=== PATIENT | female | born 1990 | race Caucasian/White ===

== ENCOUNTER 2018-04-24 09:45 | Inpatient (IN) | payer SELFPAY ==
[2018-04-24] MEDS ORDERED: DILAUDID IV ONE ×3 (10:11→17:00)
[2018-04-24] MEDS ORDERED: ZOFRAN IV ONE (10:11)
[2018-04-24] MEDS ORDERED: NACL 0.9% 1000 ML 1,000 ML IV ONE ×2 (10:11→13:07)
--- NOTE | 2018-04-24 10:33 | Emergency Department Report ---
HPI - General Chief Complaint: Nausea/Vomiting/Diarrhea Time Seen by Provider: 04/24/18 10:02 - HPI HPI: 27-year-old after Czech female presents to the emergency department with a 2 day history of upper abdominal pain, nausea and vomiting. Patient says that she has been vomiting blood. She does have a history of a previous gastric ulcer rupture with subsequent surgical repair that occurred in [place] about 1.5 years ago. 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 The patient says that she takes Protonix and Bentyl regularly. She denies any fever, chest pain, armando rtness of breath. ED Past Medical Hx - Past Medical History Previous Medical History?: Yes Additional medical history: ulcers - Social History Smoking Status: Unknown if ever smoked Substance Use Type: None - Medications Home Medications: Home Medications Medication Instructions Recorded Confirmed Last Taken Type ALPRAZolam [Xanax] 1 mg PO DAILY PRN 04/24/18 04/24/18 04/23/18 History Acetaminophen/Codeine [Tylenol 1 tab PO Q6H PRN 04/24/18 04/24/18 04/24/18 History /Codeine # 3 tab] Albuterol Sulfate [Ventolin HFA] 2 puff IH Q4H PRN 04/24/18 04/24/18 04/23/18 History Dicyclomine [Bentyl] 20 mg PO QID 04/24/18 04/24/18 04/23/18 History Pantoprazole [Protonix] 40 mg PO QDAY 04/24/18 04/24/18 04/23/18 History Sucralfate [Carafate] 20 ml PO BIDAC 04/24/18 04/24/18 04/23/18 History ED Review of Systems ROS: Stated complaint: VOMIT/PAIN/ABD PAIN Other details as noted in HPI Comment: All other systems reviewed and negative Constitutional: denies: chills, fever Eyes: denies: eye pain, vision change ENT: denies: ear pain, throat pain Respiratory: denies: cough, shortness of breath Cardiovascular: denies: chest pain, palpitations Gastrointestinal: abdominal pain, nausea, vomiting, hematemesis Genitourinary: denies: urgency, dysuria Musculoskeletal: denies: back pain, arthralgia Skin: denies: rash, lesions Neurological: denies: headache, weakness Physical Exam - Physical Exam Vital Signs: Vital Signs 04/24/18 04/24/18 10:12 10:21 Temperature 99.1 F Pulse Rate 119 H Blood Pressure 119/62 119/62 O2 Sat by Pulse 100 Oximetry Physical Exam: GENERAL: Patient is ill-appearing. HEENT: Normocephalic. Atraumatic. Patient has moist mucous membranes. EYES: Extraocular motions are intact. Pupils are equal and reactive to light bilaterally. NECK: Supple. Trachea is midline. CHEST/LUNGS: Clear to auscultation. There is no respiratory distress noted. HEART/CARDIOVASCULAR: Regular. There is mild to moderate tachycardia. There is no obvious murmur. ABDOMEN: Abdomen is soft. Upper abdominal tenderness to palpation. No guarding. Patient has normal bowel sounds. There is no abdominal distention. SKIN: Skin is warm and dry. NEURO: The patient is awake, alert, and oriented. The patient is cooperative. The patient has no focal neurologic deficits. The patient has normal speech. MUSCULOSKELETAL: There is no tenderness or deformity. There is no limitation range of motion. There is no evidence of acute injury. ED Course Vital Signs 04/24/18 04/24/18 10:12 10:21 Temperature 99.1 F Pulse Rate 119 H Blood Pressure 119/62 119/62 O2 Sat by Pulse 100 Oximetry - Reevaluation(s) Reevaluation #1: After the patient received a dose of Zofran and Dilaudid, the patient started having allergic reaction. She has had the Dilaudid before but says that she has never had Zofran and therefore I believe this to be the allergen. She is complaining of some chest tightness and throat itching. Therefore, patient will be treated with Solu-Medrol, epinephrine and Benadryl to treat and/or avoid roscoe phylaxis. In the meantime, the patient has had some blood work coming back that shows that the patient is with a qualitative serum test. I explained that some of the medication for allergic reaction, such as epinephrine, may not be completely appropriate for but the benefits of using this medication and/or the risk of not using it in an anaphylactic situation definitely outweigh the risks. The patient understands and agrees and receiving these medications. 04/24/18 10:53 - Consultations Consultation #1: Payal, nurse practitioner for the gastroenterology service, came down and saw the patient in the emergency department and they are taking the patient to the endoscopy suite for an upper EGD. 04/24/18 17:55 ED Medical Decision Making - Lab Data Result diagrams: 04/24/18 10:17 04/24/18 10:17 - Radiology Data Radiology results: report reviewed ULTRASOUND ABDOMEN LIMITED: TECHNIQUE: Transabdominal ultrasound with color Doppler interrogation. HISTORY: Upper abdominal pain, hematemesis. COMPARISON: none. FINDINGS: LIVER: Normal. BILIARY SYSTEM: Normal. PANCREAS: Normal. RIGHT KIDNEY: Normal. PROXIMAL AORTA: Normal. ASCITES: None. IMPRESSION: Unremarkable exam. ULTRASOUND OB LESS THAN 14 WEEKS FETUS ULTRASOUND OB TRANSVAGINAL History: Abdominal pain during . Findings: Transabdominal and transvaginal ultrasound imaging was performed. The uterus measures 7 x 5 x 5 cm. No uterine fibroid disease is identified. There appears to be a tiny cystic structure in the endometrial canal near the uterine fundus which probably represents a very early gestational sac. No pole, yolk sac or heart rate could be identified at this time. No subchorionic hemorrhage. Average gestation sac diameter measures 5.2 mm which correlates with a five-week two-day . The right ovary contains a 2.7 cm slightly complex cyst containing debris. The left ovary is unremarkable. No pelvic fluid collection. Impression: Probable very early intrauterine as described above. No pole or heart rate could be demonstrated at this time. Blighted ovum could also be considered. Close interval followup is recommended. 2.7 cm right ovarian cyst, slightly complex. Transcribed By: TTR Dictated By: JAZMIN REYES JR, MD Electronically Authenticated By: JAZMIN REYES JR, MD Signed Date/Time: 04/24/18 1233 - Medical Decision Making Patient presents with upper abdominal pain, nausea and vomiting with hem atemesis. Patient did have multiple episodes of visible hematemesis in the emergency department. As part of her workup, the patient was found to be with a beta hCG of about 2200. Ultrasound showed a very early intrauterine versus blighted ovum versus other. Patient's labs were otherwise unremarkable. Patient did not have any significant hypotension. Hemoglobin was stable. Abdominal ultrasound did not show any acute process. The patient was admitted to the hospitalist service with a gastroenterology consult. - Differential Diagnosis Selina-Treviño tear, gastritis, esophagitis, malignancy, Critical Care Time: No Critical care attestation.: If time is entered above; I have spent that time in minutes in the direct care of this critically ill patient, excluding procedure time. ED Disposition Clinical Impression: Upper GI bleed Qualifiers: Weeks of gestation: less than 8 weeks Qualified Code(s): Z3A.01 - Less than 8 weeks gestation of Hematemesis Qualifiers: Nausea presence: with nausea Qualified Code(s): K92.0 - Hematemesis Disposition: DC-09 OP ADMIT IP TO THIS HOSP Is pt being admited?: Yes Condition: Serious Time of Disposition: 18:04
[2018-04-24 10:38] LABS: Basophils # (Auto) 0.1 K/mm3 (0.0-0.1); Basophils % (Auto) 0.5 % (0.0-1.8); Eosinophils % (Auto) 0.1 % (0.0-4.3); Hematocrit 39.2 % (30.3-42.9); Hemoglobin 12.5 gm/dl (10.1-14.3); Lymphocytes # (Auto) 1.4 K/mm3 (1.2-5.4); Lymphocytes % (Auto) 11.6 % (13.4-35.0); Mean Corpuscular HGB Conc 32 % (30-34); Mean Corpuscular Volume 81 fl (79-97); Monocytes # (Auto) 0.4 K/mm3 (0.0-0.8); Monocytes % (Auto) 3.8 % (0.0-7.3); Platelet Count 349 K/mm3 (140-440); Red Blood Count 4.86 M/mm3 (3.65-5.03); Red Cell Distribution Width 18.3 % (13.2-15.2)
[2018-04-24 10:40] LABS: Bilirubin,Urine NEG (Negative); Blood,Urine NEG (Negative); Color,Urine Yellow (Yellow); Mucus,Urine FEW /HPF; Protein,Urine <15 mg/dL mg/dL (Negative); RBC,Urine < 1.0 /HPF (0.0-6.0); Urobilinogen,Urine < 2.0 mg/dL (<2.0)
[2018-04-24] MEDS ORDERED: BENADRYL IV ONE (10:48)
[2018-04-24] MEDS ORDERED: REGLAN IV ONE (10:48)
[2018-04-24] MEDS ORDERED: BENADRYL ONE (10:52)
[2018-04-24] MEDS ORDERED: ADRENALINE P/F ONE (10:53)
[2018-04-24 10:58] LABS: Alanine Aminotransferase 9 units/L (7-56); Albumin 4.6 g/dL (3.9-5); BUN/Creatinine Ratio 18; Blood Urea Nitrogen 9 mg/dL (7-17); Calcium 9.2 mg/dL (8.4-10.2); Hemolysis Index 4
[2018-04-24 11:00] LABS: Bilirubin,Direct < 0.2 mg/dL (0-0.2)
[2018-04-24] MEDS ORDERED: PEPCID IV ONE (11:14)
--- NOTE | 2018-04-24 12:37 | Ultrasound Report ---
ULTRASOUND OB LESS THAN 14 WEEKS FETUS ULTRASOUND OB TRANSVAGINAL History: Abdominal pain during . Findings: Transabdominal and transvaginal ultrasound imaging was performed. The uterus measures 7 x 5 x 5 cm. No uterine fibroid disease is identified. There appears to be a tiny cystic structure in the endometrial canal near the uterine fundus which probably represents a very early gestational sac. No pole, yolk sac or heart rate could be identified at this time. No subchorionic hemorrhage. Average gestation sac diameter measures 5.2 mm which correlates with a five-week two-day . The right ovary contains a 2.7 cm slightly complex cyst containing debris. The left ovary is unremarkable. No pelvic fluid collection. Impression: Probable very early intrauterine as described above. No pole or heart rate could be demonstrated at this time. Blighted ovum could also be considered. Close interval followup is recommended. 2.7 cm right ovarian cyst, slightly complex.
--- NOTE | 2018-04-24 12:39 | Ultrasound Report ---
ULTRASOUND ABDOMEN LIMITED: TECHNIQUE: Transabdominal ultrasound with color Doppler interrogation. HISTORY: Upper abdominal pain, hematemesis. COMPARISON: none. FINDINGS: LIVER: Normal. BILIARY SYSTEM: Normal. PANCREAS: Normal. RIGHT KIDNEY: Normal. PROXIMAL AORTA: Normal. ASCITES: None. IMPRESSION: Unremarkable exam.
[2018-04-24] MEDS: NACL 0.9% 1000 ML 1,000 ML ONE ×2 (12:45→19:43)
[2018-04-24] MEDS ORDERED: DILAUDID ONE (13:05)
--- NOTE | 2018-04-24 13:44 | Consultation ---
History of Present Illness - Reason for Consult Consult date: 04/24/18 Hematemesis - History of Present Illness Ms. Roger is a 27-year-old woman who was well until 2 days ago when she developed acute onset of epigastric pain with nausea and vomiting with blood in emesis. Due to ongoing symptoms, patient presented to the emergency room where she was noted to have karina bright red blood in emesis, albeit small amounts, but frequently. She was also just diagnosed with in the emergency room. She has a history of perforated peptic ulcer disease in 2017 in [place]. Apparently, the perforation was iatrogenic during endoscopy. She also reports a history of hepatitis C. She denies aspirin and non-steroidal use. She has a remote history of heavy alcohol abuse, but none recently. She reports dark stools, but rectal examination emergency room showed light brown stool. There's been no weight loss. No shortness of breath no weight loss. She has some chest pain with vomiting. Past History Past Medical History: hepatitis (C?), other (PUD - 2017) Past Surgical History: Other (Gastric surgery for PUD) Social history: denies: smoking, alcohol abuse Family history: no significant family history Medications and Allergies Allergies Allergy/AdvReac Type Severity Reaction Status Date / Time ketorolac [From Toradol] Allergy Hives Verified 04/24/18 09:47 ondansetron [From Zofran] Allergy Itching Verified 04/24/18 11:42 piperacillin [From Zosyn] Allergy Hives Verified 04/24/18 09:46 tazobactam [From Zosyn] Allergy Hives Verified 04/24/18 09:46 Home Medications Medication Instructions Recorded Confirmed Last Taken Type ALPRAZolam [Xanax] 1 mg PO DAILY PRN 04/24/18 04/24/18 04/23/18 History Acetaminophen/Codeine [Tylenol 1 tab PO Q6H PRN 04/24/18 04/24/18 04/24/18 History /Codeine # 3 tab] Albuterol Sulfate [Ventolin HFA] 2 puff IH Q4H PRN 04/24/18 04/24/18 04/23/18 History Dicyclomine [Bentyl] 20 mg PO QID 04/24/18 04/24/18 04/23/18 History Pantoprazole [Protonix] 40 mg PO QDAY 04/24/18 04/24/18 04/23/18 History Sucralfate [Carafate] 20 ml PO BIDAC 04/24/18 04/24/18 04/23/18 History Active Meds: Active Medications Sodium Chloride (Nacl 0.9% 1000 Ml) 1,000 mls @ 999 mls/hr IV BOLUS ONE Stop: 04/24/18 14:07 Review of Systems All systems: negative (as per HPI) Exam - Constitutional Vitals: Temp Pulse Resp BP Pulse Ox 99.1 F 105 H 17 119/62 99 04/24/18 10:12 04/24/18 12:18 04/24/18 11:01 04/24/18 12:18 04/24/18 12:18 General appearance: Present: mild distress (vomiting) - EENT Eyes: Present: PERRL, EOM intact ENT: hearing intact - Respiratory Respiratory effort: normal Respiratory: bilateral: CTA - Cardiovascular Rhythm: other (Tachycardia) Heart Sounds: Present: S1 & S2 - Extremities Extremities: No edema - Abdominal General gastrointestinal: Present: soft, tender (mild epigastric), normal bowel sounds - Rectal Rectal Exam: stool brown Results - Labs CBC & Chem 7: 04/24/18 10:17 04/24/18 10:17 Labs: Abnormal lab results 04/24/18 04/24/18 04/24/18 Range/Units 10:17 10:17 10:17 WBC 12.0 H (4.5-11.0) K/mm3 MCH 26 L (28-32) pg RDW 18.3 H (13.2-15.2) % Lymph % (Auto) 11.6 L (13.4-35.0) % Seg Neutrophils % 84.0 H (40.0-70.0) % Seg Neutrophils # 10.1 H (1.8-7.7) K/mm3 Carbon Dioxide 19 L (22-30) mmol/L Creatinine 0.5 L (0.7-1.2) mg/dL Glucose 110 H (65-100) mg/dL HCG, Quant 2272 H (0-4) mIU/mL Assessment and Plan 1. Hematemesis - most consistent with Selina-Treviño tear. Cannot exclude peptic ulcer disease. Patient could well have nausea and vomiting as a result of her though that is less likely given the acute onset of symptoms. She is hemodynamically stable. -We will do urgent upper endoscopy. Risks 2 and to patient explained. -We will give PPI, and may give drip based on findings. - Monitor H&H, and transfuse as needed. -Further recommendations pending outcome of endoscopy.
[2018-04-24] MEDS: NACL 0.9% 1000 ML 1,000 ML IV SCH ×2 (14:32→20:16)
[2018-04-24] MEDS ORDERED: DIPRIVAN 10 MG/ML IV ONE (14:45)
[2018-04-24] MEDS ORDERED: XYLOCAINE 2% INFILTRATI ONE (14:46)
--- NOTE | 2018-04-24 15:13 | Post Operative Note ---
Pre-op diagnosis: Hematemesis Post-op diagnosis: other (Minimal erosion at Z-line) Findings: 1. Normal esophagus 2. Normal Z-line at 40 cm from incisors, with 2-3 mm erosion noted, no stigmata of bleeding. 3. Normal stomach, with no blood, only bile noted in stomach, and no luminal or mucosal abnormality. 4. Normal duodenum and bulb. Procedure: EGD Anesthesia: MAC Surgeon: KAIDEN MANNING Estimated blood loss: none Pathology: none Condition: stable Disposition: floor (Further evaluation of abd pain as per Hospitalist. Consider OB consult to assess for ectopic, etc.)
--- NOTE | 2018-04-24 15:16 | Anesthesia Day of Surgery ---
Anesthesia Day of Surgery - Day of Surgery Patient Examined: Yes Patient H&P Reviewed: Yes Patient is NPO: Yes Beta Blockers: No Cardiac Clearance: No Pulmonary Clearance: No
--- NOTE | 2018-04-24 15:17 | Anesthesia Consultation ---
Anesthesia Consult and Med Hx Date of service: 04/24/18 - Airway Anesthetic Teeth Evaluation: Poor, Partials Mental/Hyoid Distance: Adequate Mallampati Class: Class II Intubation Access Assessment: Probably Good - Pulmonary Exam CTA: Yes - Cardiac Exam Cardiac Exam: No Murmur - Pre-Operative Health Status ASA Pre-Surgery Classification: ASA3 Proposed Anesthetic Plan: MAC - Pulmonary Hx Smoking: Yes Hx Asthma: Yes Hx Respiratory Symptoms: No SOB: No COPD: No Home Oxygen Therapy: No Hx Pneumonia: No Hx Sleep Apnea: No - Cardiovascular System Hx Hypertension: No Hx Coronary Artery Disease: No Hx Heart Attack/AMI: No Hx Angina: No Hx Percutaneous Transluminal Coronary Angioplasty (PTCA): No Hx Cardia Arrhythmia: No Hx Pacemaker: No - Central Nervous System Hx Neuromuscular Disorder: No Hx Seizures: No CVA: No Hx Back Pain: No Hx Psychiatric Problems: No - Gastrointestinal Hx Ulcer: Yes Hx Gastroesophageal Reflux Disease: No - Endocrine Hx Renal Disease: No Hx End Stage Renal Disease: No Hx Cirrhosis: No Hx Liver Disease: No Hx Insulin Dependent Diabetes: No Hx Thyroid Disease: No Hx Hypothyroidism: No Hx Hyperthyroidism: No - Hematic Hx Anemia: No Hx Sickle Cell Disease: No - Other Systems Hx Alcohol Use: No Hx Substance Use: Yes Hx Cancer: No Hx Obesity: No
[2018-04-24] MEDS: DILAUDID IV PRN ×4 (15:30→23:00)
--- NOTE | 2018-04-24 15:31 | Operative Report ---
UPPER ENDOSCOPY REPORT PROCEDURE: Upper endoscopy. PREOPERATIVE DIAGNOSES: Hematemesis and abdominal pain. POSTOPERATIVE DIAGNOSIS: Minimal erosion at EG junction. SEDATION: MAC by Anesthesia. HISTORY: The patient is a 27-year-old woman who comes in with a 1-week history of intermittent epigastric and left upper quadrant abdominal pain and a 2-day history of nausea and vomiting with hematemesis. She has a history of peptic ulcer disease in the past with perforation requiring surgery approximately 2 years ago. She was noted to have karina hematemesis in the ED. Hemoglobin is normal. Procedure, indications, risks, and benefits were explained and consent was obtained. The patient was placed in left lateral decubitus position and sedated. Triage video upper scope was passed through the mouth and oropharynx into the descending duodenum. Scope was then gradually withdrawn with close inspection of mucosa. FINDINGS: 1. Normal appearing esophagus with sharp Z-line located at 40 cm from the incisors. 2. 2-3 mm erosion with no stigmata of bleeding noted at the EG junction that could represent a Selina-Treviño type of an injury. 3. Normal appearing gastric antrum, fundus and body, and cardia. There is no evidence of old or fresh blood and there is bile noted in the stomach. There is no luminal deformity consistent with prior peptic ulcer disease. 4. Normal appearing duodenal bulb and duodenum. The patient tolerated the procedure well without immediate complication. IMPRESSION: 1. Minimal erosion at EG junction consistent with possible trauma from vomiting. 2. Otherwise, normal upper endoscopy with no evidence of bleeding source. [facility]# [id number] HRC/NTS
--- NOTE | 2018-04-24 16:08 | Post Anesthesia Evaluation ---
- Post Anesthesia Evaluation Patient Participated: Yes Airway Patent: Yes Stable Respiratory Function: Yes Temp > 96.8F: Yes Pain Manageable: Yes Adequeate Hydration: Yes Anesthesia Complications: No
--- NOTE | 2018-04-24 17:37 | History and Physical Report ---
History of Present Illness Date of examination: 04/24/18 Date of admission: 04/24/18 13:42 Chief complaint: Persistent vomiting and karina blood in the vomitus 1 History of present illness: 27-year-old -Taiwanese female with history of gastric ulcer comes in for left upper quadrant pain nausea and vomiting x 2 days. Patient apparently threw up bright red blood-a very small amount. Patient had gastric ulcer couple of years ago which was repaired by open laparotomy in [place]. Patient recently moved to [place] from [place]. She takes Bentyl and Protonix regularly .No melanotic stools. No fever or chills. Pain in the epigastric and left upper quadrant is about 10 on a scale of 1-10. No exacerbating or relieving factors. No recent intake of nonsteroidals. Past Medical History Additional medical history: ulcers Social History Smoking Status: Unknown if ever smoked Substance Use Type: None Family history Htn Surgical history Open laparotomy for gastric ulcer surgery Review of systems ROS: Stated complaint: VOMIT/PAIN/ABD PAIN Other details as noted in HPI Comment: All other systems reviewed and negative Constitutional: denies: chills, fever Eyes: denies: eye pain, vision change ENT: denies: ear pain, throat pain Respiratory: denies: cough, shortness of breath Cardiovascular: denies: chest pain, palpitations Gastrointestinal: abdominal pain, nausea, vomiting, hematemesis Genitourinary: denies: urgency, dysuria Musculoskeletal: denies: back pain, arthralgia Skin: denies: rash, lesions Neurological: denies: headache, weakness Past History Past Medical History: hepatitis (C?), other (PUD - 2017) Past Surgical History: Other (Gastric surgery for PUD) Social history: denies: smoking, alcohol abuse Family history: no significant family history Medications and Allergies Allergies Allergy/AdvReac Type Severity Reaction Status Date / Time ketorolac [From Toradol] Allergy Hives Verified 04/24/18 09:47 ondansetron [From Zofran] Allergy Itching Verified 04/24/18 11:42 piperacillin [From Zosyn] Allergy Hives Verified 04/24/18 09:46 tazobactam [From Zosyn] Allergy Hives Verified 04/24/18 09:46 Home Medications Medication Instructions Recorded Confirmed Last Taken Type ALPRAZolam [Xanax] 1 mg PO DAILY PRN 04/24/18 04/24/18 04/23/18 History Acetaminophen/Codeine [Tylenol 1 tab PO Q6H PRN 04/24/18 04/24/18 04/24/18 History /Codeine # 3 tab] Albuterol Sulfate [Ventolin HFA] 2 puff IH Q4H PRN 04/24/18 04/24/18 04/23/18 History Dicyclomine [Bentyl] 20 mg PO QID 04/24/18 04/24/18 04/23/18 History Pantoprazole [Protonix] 40 mg PO QDAY 04/24/18 04/24/18 04/23/18 History Sucralfate [Carafate] 20 ml PO BIDAC 04/24/18 04/24/18 04/23/18 History Active Meds: Active Medications Hydromorphone HCl (Dilaudid) 0.5 mg IV Q3H PRN PRN Reason: Pain , Severe (7-10) Last Admin: 04/24/18 16:00 Dose: 0.5 mg Documented by: Sodium Chloride (Nacl 0.9% 1000 Ml) 1,000 mls @ 50 mls/hr IV DIRECT SHAYE Last Admin: 04/24/18 14:32 Dose: 50 mls/hr Documented by: Pantoprazole Sodium (Protonix) 40 mg IV BID SHAYE Exam - Constitutional Vitals: Temp Pulse Resp BP Pulse Ox 98.3 F 91 H 16 130/44 97 04/24/18 16:33 04/24/18 16:33 04/24/18 16:33 04/24/18 16:33 04/24/18 16:33 General appearance: Present: no acute distress, well-nourished - EENT Eyes: Present: PERRL ENT: hearing intact, clear oral mucosa - Neck Neck: Present: supple, normal ROM - Respiratory Respiratory effort: normal Respiratory: bilateral: CTA - Cardiovascular Heart rate: 78 Rhythm: regular Heart Sounds: Present: S1 & S2. Absent: rub, click - Extremities Extremities: no ischemia, pulses intact, pulses symmetrical, No edema Peripheral Pulses: within normal limits - Abdominal General gastrointestinal: Present: soft, tender (tender in the left upper quadrant region and epigastric region), non-distended, normal bowel sounds Female genitourinary: Present: normal - Integumentary Integumentary: Present: clear, warm, dry - Musculoskeletal Musculoskeletal: gait normal, strength equal bilaterally - Psychiatric Psychiatric: appropriate mood/affect, intact judgment & insight - Neurologic Neurologic: CNII-XII intact, moves all extremities - Allied Health Allied health notes reviewed: nursing, case management Results - Labs CBC & Chem 7: 04/24/18 10:17 04/24/18 10:17 Labs: Laboratory Last Values WBC 12.0 K/mm3 (4.5-11.0) H 04/24/18 10:17 RBC 4.86 M/mm3 (3.65-5.03) 04/24/18 10:17 Hgb 12.5 gm/dl (10.1-14.3) 04/24/18 10:17 Hct 39.2 % (30.3-42.9) 04/24/18 10:17 MCV 81 fl (79-97) 04/24/18 10:17 MCH 26 pg (28-32) L 04/24/18 10:17 MCHC 32 % (30-34) 04/24/18 10:17 RDW 18.3 % (13.2-15.2) H 04/24/18 10:17 Plt Count 349 K/mm3 (140-440) 04/24/18 10:17 Lymph % (Auto) 11.6 % (13.4-35.0) L 04/24/18 10:17 [place] % (Auto) 3.8 % (0.0-7.3) 04/24/18 10:17 Eos % (Auto) 0.1 % (0.0-4.3) 04/24/18 10:17 Baso % (Auto) 0.5 % (0.0-1.8) 04/24/18 10:17 Lymph # 1.4 K/mm3 (1.2-5.4) 04/24/18 10:17 [place] # 0.4 K/mm3 (0.0-0.8) 04/24/18 10:17 Eos # 0.0 K/mm3 (0.0-0.4) 04/24/18 10:17 Baso # 0.1 K/mm3 (0.0-0.1) 04/24/18 10:17 Seg Neutrophils % 84.0 % (40.0-70.0) H 04/24/18 10:17 Seg Neutrophils # 10.1 K/mm3 (1.8-7.7) H 04/24/18 10:17 Sodium 141 mmol/L (137-145) 04/24/18 10:17 Potassium 3.9 mmol/L (3.6-5.0) 04/24/18 10:17 Chloride 106.3 mmol/L (98-107) 04/24/18 10:17 Carbon Dioxide 19 mmol/L (22-30) L 04/24/18 10:17 Anion Gap 20 mmol/L 04/24/18 10:17 BUN 9 mg/dL (7-17) 04/24/18 10:17 Creatinine 0.5 mg/dL (0.7-1.2) L 04/24/18 10:17 Estimated GFR > 60 ml/min 04/24/18 10:17 BUN/Creatinine Ratio 18 % 04/24/18 10:17 Glucose 110 mg/dL (65-100) H 04/24/18 10:17 Calcium 9.2 mg/dL (8.4-10.2) 04/24/18 10:17 Total Bilirubin 0.20 mg/dL (0.1-1.2) 04/24/18 10:17 Direct Bilirubin < 0.2 mg/dL (0-0.2) 04/24/18 10:17 AST 14 units/L (5-40) 04/24/18 10:17 ALT 9 units/L (7-56) 04/24/18 10:17 Alkaline Phosphatase 87 units/L (35-129) 04/24/18 10:17 Total Protein 8.0 g/dL (6.3-8.2) 04/24/18 10:17 Albumin 4.6 g/dL (3.9-5) 04/24/18 10:17 Albumin/Globulin Ratio 1.4 % 04/24/18 10:17 Lipase 28 units/L (13-60) 04/24/18 10:17 HCG, Qual Positive (Negative) 04/24/18 10:17 HCG, Quant 2272 mIU/mL (0-4) H 04/24/18 10:17 Urine Color Yellow (Yellow) 04/24/18 10:16 Urine Turbidity Clear (Clear) 04/24/18 10:16 Urine pH 5.0 (5.0-7.0) 04/24/18 10:16 Ur Specific [place] 1.010 (1.003-1.030) 04/24/18 10:16 Urine Protein <15 mg/dl mg/dL (Negative) 04/24/18 10:16 Urine Glucose (UA) Neg mg/dL (Negative) 04/24/18 10:16 Urine Ketones 20 mg/dL (Negative) 04/24/18 10:16 Urine Blood Neg (Negative) 04/24/18 10:16 Urine Nitrite Neg (Negative) 04/24/18 10:16 Urine Bilirubin Neg (Negative) 04/24/18 10:16 Urine Urobilinogen < 2.0 mg/dL (<2.0) 04/24/18 10:16 Ur Leukocyte Esterase Neg (Negative) 04/24/18 10:16 Urine WBC (Auto) 2.0 /HPF (0.0-6.0) 04/24/18 10:16 Urine RBC (Auto) < 1.0 /HPF (0.0-6.0) 04/24/18 10:16 U Epithel Cells (Auto) 4.0 /HPF (0-13.0) 04/24/18 10:16 Urine Mucus Few /HPF 04/24/18 10:16 Short CBC 04/24/18 Range/Units 10:17 WBC 12.0 H (4.5-11.0) K/mm3 Hgb 12.5 (10.1-14.3) gm/dl Hct 39.2 (30.3-42.9) % Plt Count 349 (140-440) K/mm3 BMP 04/24/18 10:17 Sodium 141 Potassium 3.9 Chloride 106.3 Carbon Dioxide 19 L BUN 9 Creatinine 0.5 L Glucose 110 H Calcium 9.2 Liver Function 04/24/18 Range/Units 10:17 Total Bilirubin 0.20 (0.1-1.2) mg/dL Direct Bilirubin < 0.2 (0-0.2) mg/dL AST 14 (5-40) units/L ALT 9 (7-56) units/L Alkaline Phosphatase 87 (35-129) units/L Albumin 4.6 (3.9-5) g/dL Urine 04/24/18 Range/Units 10:16 Urine Color Yellow (Yellow) Urine pH 5.0 (5.0-7.0) Ur Specific [place] 1.010 (1.003-1.030) Urine Protein <15 mg/dl (Negative) mg/dL Urine Glucose (UA) Neg (Negative) mg/dL - Imaging and Cardiology Imaging and Cardiology: Transvaginal ultrasound Impression: Probable very early intrauterine as described above. No pole or heart rate could be demonstrated at this time. Blighted ovum could also be considered. Close interval followup is recommended. 2.7 cm right ovarian cyst, slightly complex. Abdominal ultrasound IMPRESSION: Unremarkable exam. ultrasound Impression: Probable very early intrauterine as described above. No pole or heart rate could be demonstrated at this time. Blighted ovum could also be considered. Close interval followup is recommended. 2.7 cm right ovarian cyst, slightly complex. Assessment and Plan Advance Directives: Yes (full code) VTE prophylaxis?: Mechanical Plan of care discussed with patient/family: Yes - Patient Problems (1) Upper GI bleed Current Visit: Yes Status: Acute Plan to address problem: Patient being taken for EGD GI consult requested IV Protonix initiated IV Zofran and Reglan IV fluids Check hemoglobin and hematocrit every 8 hours Will admit for 24 hours (2) Early stage of Current Visit: Yes Status: Acute Plan to address problem: Obstetrics consulted (3) Peptic ulcer disease Current Visit: Yes Status: Chronic Plan to address problem: IV Protonix for now (4) DVT prophylaxis Current Visit: Yes Status: Acute Plan to address problem: On SCD's --no Lovenox
[2018-04-24] MEDS ORDERED: SODIUM CHLORIDE FLUSH SYRINGE 10 ML IV PRN (18:05)
[2018-04-24] MEDS ORDERED: TYLENOL PO PRN (18:05)
[2018-04-24] MEDS ORDERED: ZOFRAN IV PRN (18:05)
[2018-04-24] MEDS: REGLAN IV PRN (20:06)
[2018-04-24 20:16] LABS: Hematocrit 35.7 % (30.3-42.9); Hemoglobin 11.5 gm/dl (10.1-14.3)
[2018-04-24] MEDS: PROTONIX IV SCH (22:10)
[2018-04-24] MEDS: SODIUM CHLORIDE FLUSH SYRINGE 10 ML IV SCH (22:11)
[2018-04-25] MEDS: REGLAN IV PRN (01:59)
[2018-04-25] MEDS: DILAUDID IV PRN ×7 (02:00→22:21)
[2018-04-25 03:02] LABS: Basophils % (Auto) 0.3 % (0.0-1.8); Eosinophils # (Auto) 0.1 K/mm3 (0.0-0.4); Eosinophils % (Auto) 0.7 % (0.0-4.3); Hematocrit 33.5 % (30.3-42.9); Hemoglobin 10.6 gm/dl (10.1-14.3); Lymphocytes # (Auto) 2.6 K/mm3 (1.2-5.4); Lymphocytes % (Auto) 30.1 % (13.4-35.0); Mean Corpuscular HGB Conc 32 % (30-34); Mean Corpuscular Volume 82 fl (79-97); Monocytes # (Auto) 0.6 K/mm3 (0.0-0.8); Monocytes % (Auto) 7.3 % (0.0-7.3); Platelet Count 276 K/mm3 (140-440); Red Blood Count 4.09 M/mm3 (3.65-5.03); Red Cell Distribution Width 18.2 % (13.2-15.2)
[2018-04-25 03:27] LABS: Alanine Aminotransferase 8 units/L (7-56); Albumin 3.3 g/dL (3.9-5); BUN/Creatinine Ratio 13; Blood Urea Nitrogen 5 mg/dL (7-17); Calcium 7.9 mg/dL (8.4-10.2); Hemolysis Index 7
[2018-04-25] MEDS: PROTONIX IV SCH ×2 (09:35→22:21)
--- NOTE | 2018-04-25 11:02 | Gastroenterology Progress Note ---
<GINI RAI - Last Filed: 04/25/18 11:05> Assessment and Plan 1.GI bleed/hematemesis 2.H/o PUD (in 2017 in [place] w/ iatrogenic perforation during endoscopy requiring surgical repair) 3.abdominal pain 4.N/V-likely related to early stage of -lipase, LFTs, and WBC WNL -H/H WNL (10.6/33.5) -continue to monitor H/H and transfuse as needed -s/p EGD yesterday that showed minimal erosion at Z-line w/o stigmata of bleeding -clinically, patient reports continued abd pain but vomiting has now improved with no active signs of bleeding overnight. HD stable. -continue PPI -advance diet as tolerated -continue supportive care -further workup of abd pain per OB and primary team (consider imaging) -no further recommendations per GI standpoint at this time -will sign off, please call if needed Subjective Date of service: 04/25/18 Principal diagnosis: GI bleed Interval history: No acute distress. Reports continued abd pain and nausea. No vomiting or active signs of bleeding overnight or this am. Objective - Constitutional Vitals: Temp Pulse Resp BP Pulse Ox 98.8 F 63 18 96/55 100 04/25/18 04:45 04/25/18 04:45 04/25/18 06:43 04/25/18 04:45 04/25/18 04:45 General appearance: no acute distress - EENT Eyes: PERRL, EOM intact ENT: hearing intact - Respiratory Respiratory: bilateral: CTA - Cardiovascular Rhythm: regular Heart Sounds: Present: S1 & S2 - Gastrointestinal General gastrointestinal: Present: soft, tender (mild TTP in LUQ), non- distended, normal bowel sounds, other (+scar from previous surgery) - Neurologic Neurological: alert and oriented x3 - Labs CBC & Chem 7: 04/25/18 02:45 04/25/18 02:45 Labs: Laboratory Results - last 24 hr 04/24/18 04/24/18 04/24/18 10:17 10:17 19:34 WBC RBC Hgb 11.5 Hct 35.7 MCV MCH MCHC RDW Plt Count Lymph % (Auto) [place] % (Auto) Eos % (Auto) Baso % (Auto) Lymph # [place] # Eos # Baso # Seg Neutrophils % Seg Neutrophils # Sodium Potassium Chloride Carbon Dioxide Anion Gap BUN Creatinine Estimated GFR BUN/Creatinine Ratio Glucose Calcium Total Bilirubin Direct Bilirubin < 0.2 AST ALT Alkaline Phosphatase Total Protein Albumin Albumin/Globulin Ratio HCG, Quant 2272 H 04/25/18 04/25/18 02:45 02:45 WBC 8.6 RBC 4.09 Hgb 10.6 Hct 33.5 MCV 82 MCH 26 L MCHC 32 RDW 18.2 H Plt Count 276 Lymph % (Auto) 30.1 [place] % (Auto) 7.3 Eos % (Auto) 0.7 Baso % (Auto) 0.3 Lymph # 2.6 [place] # 0.6 Eos # 0.1 Baso # 0.0 Seg Neutrophils % 61.6 Seg Neutrophils # 5.3 Sodium 138 Potassium 3.3 L Chloride 106.4 Carbon Dioxide 20 L Anion Gap 15 BUN 5 L Creatinine 0.4 L Estimated GFR > 60 BUN/Creatinine Ratio 13 Glucose 75 Calcium 7.9 L Total Bilirubin 0.40 Direct Bilirubin AST 11 ALT 8 Alkaline Phosphatase 64 Total Protein 5.5 L D Albumin 3.3 L Albumin/Globulin Ratio 1.5 HCG, Quant <KAIDEN MANNING R - Last Filed: 04/25/18 16:02> Assessment and Plan Pt having vaginal bleed, and likely having spontaneous /termination of . Having lower abd pain in addition to intermittent LUQ pain. Once OB condition stabilized, if possible, would get CT abdomen for LUQ pain, and then consider surgical evaluation for possible adhesions or internal hernias. Discussed with Dr. Irizarry. Will continue to follow. Objective - Constitutional Vitals: Temp Pulse Resp BP Pulse Ox 98.6 F 85 18 114/61 98 04/25/18 11:36 04/25/18 11:36 04/25/18 11:36 04/25/18 11:36 04/25/18 11:36 - Labs CBC & Chem 7: 04/25/18 12:15 04/25/18 02:45 Labs: Laboratory Results - last 24 hr 04/24/18 04/25/18 04/25/18 19:34 02:45 02:45 WBC 8.6 RBC 4.09 Hgb 11.5 10.6 Hct 35.7 33.5 MCV 82 MCH 26 L MCHC 32 RDW 18.2 H Plt Count 276 Lymph % (Auto) 30.1 [place] % (Auto) 7.3 Eos % (Auto) 0.7 Baso % (Auto) 0.3 Lymph # 2.6 [place] # 0.6 Eos # 0.1 Baso # 0.0 Seg Neutrophils % 61.6 Seg Neutrophils # 5.3 Sodium 138 Potassium 3.3 L Chloride 106.4 Carbon Dioxide 20 L Anion Gap 15 BUN 5 L Creatinine 0.4 L Estimated GFR > 60 BUN/Creatinine Ratio 13 Glucose 75 Calcium 7.9 L Total Bilirubin 0.40 AST 11 ALT 8 Alkaline Phosphatase 64 Total Protein 5.5 L D Albumin 3.3 L Albumin/Globulin Ratio 1.5 04/25/18 12:15 WBC RBC Hgb 11.6 Hct 35.8 MCV MCH MCHC RDW Plt Count Lymph % (Auto) [place] % (Auto) Eos % (Auto) Baso % (Auto) Lymph # [place] # Eos # Baso # Seg Neutrophils % Seg Neutrophils # Sodium Potassium Chloride Carbon Dioxide Anion Gap BUN Creatinine Estimated GFR BUN/Creatinine Ratio Glucose Calcium Total Bilirubin AST ALT Alkaline Phosphatase Total Protein Albumin Albumin/Globulin Ratio
[2018-04-25 12:24] LABS: Hematocrit 35.8 % (30.3-42.9); Hemoglobin 11.6 gm/dl (10.1-14.3)
[2018-04-25] MEDS: SODIUM CHLORIDE FLUSH SYRINGE 10 ML IV SCH ×2 (12:55→22:22)
[2018-04-25] MEDS: NACL 0.9% 1000 ML 1,000 ML IV SCH (16:08)
--- NOTE | 2018-04-25 16:11 | Progress Note ---
Assessment and Plan Assessment and plan: 27-year-old -Malaysian female with history of gastric ulcer comes in for left upper quadrant pain nausea and vomiting x 2 days. Patient apparently threw up bright red blood-a very small amount. Patient had gastric ulcer couple of years ago which was repaired by open laparotomy in [place]. Patient recently moved to [place] from [place]. She takes Bentyl and Protonix regularly .No melanotic stools. No fever or chills. Pain in the epigastric and left upper quadrant is about 10 on a scale of 1-10. No exacerbating or relieving factors. No recent intake of nonsteroidals. GI bleed secondary to Erosive gastritis VAGINAL BLEED ?EARLY SPONTANEOUS IUP PERITONEAL IRRATION ?ADHESION hx of PUD IN 2017 in [place] w/ iatrogenic perforation during endoscopy requiring surgical repair Hypokalemia HX OF PUD Plan Supportive care Discussed with RAILCAR CARPENTER will order repeat transvaginal us Monitor H/H PPI Discussed case with GI, if pain continues patient will need surgical eval for adhesion management Continue zofran PRN Pain control DVT/GI prophy Plan of care discussed with the patient and nursing staff in detail History Interval history: Patient seen and examined this morning, nursing staff reports that she had extensive vaginal bleeding this am, shortly before my exam. Patient still reports abdominal pain, Left upper quadrant and now concerned about possible miss carriage. Hospitalist Physical - Physical exam Narrative exam: VITAL SIGNS: Reviewed. GENERAL: The patient appeared well nourished and normally developed. Vital si gns as documented. HEAD: No signs of head trauma. EYES: Pupils are equal. Extraocular motions intact. EARS: Hearing grossly intact. MOUTH: Oropharynx is normal. NECK: No adenopathy, no JVD. CHEST: Chest with clear breath sounds bilaterally. No wheezes, rales, or rhonchi. CARDIAC: Regular rate and rhythm. S1 and S2, without murmurs, gallops, or rubs. VASCULAR: No Edema. Peripheral pulses normal and equal in all extremities. ABDOMEN: Soft, Tender generalized. No sign of distention. No rebound or guarding, and no masses palpated. Bowel Sounds normal. MUSCULOSKELETAL: Good range of motion of all major joints. Extremities without clubbing, cyanosis or edema. NEUROLOGIC EXAM: Alert and oriented x 3. No focal sensory or strength deficits. Speech normal. Follows commands. PSYCHIATRIC: Mood emotional-teary SKIN: No rash or lesions. - Constitutional Vitals: Temp Pulse Resp BP Pulse Ox 98.6 F 85 18 114/61 98 04/25/18 11:36 04/25/18 11:36 04/25/18 11:36 04/25/18 11:36 04/25/18 11:36 General appearance: Present: no acute distress, well-nourished Results - Labs CBC & Chem 7: 04/25/18 12:15 04/25/18 02:45 Labs: Laboratory Last Values WBC 8.6 K/mm3 (4.5-11.0) 04/25/18 02:45 RBC 4.09 M/mm3 (3.65-5.03) 04/25/18 02:45 Hgb 11.6 gm/dl (10.1-14.3) 04/25/18 12:15 Hct 35.8 % (30.3-42.9) 04/25/18 12:15 MCV 82 fl (79-97) 04/25/18 02:45 MCH 26 pg (28-32) L 04/25/18 02:45 MCHC 32 % (30-34) 04/25/18 02:45 RDW 18.2 % (13.2-15.2) H 04/25/18 02:45 Plt Count 276 K/mm3 (140-440) 04/25/18 02:45 Lymph % (Auto) 30.1 % (13.4-35.0) 04/25/18 02:45 [place] % (Auto) 7.3 % (0.0-7.3) 04/25/18 02:45 Eos % (Auto) 0.7 % (0.0-4.3) 04/25/18 02:45 Baso % (Auto) 0.3 % (0.0-1.8) 04/25/18 02:45 Lymph # 2.6 K/mm3 (1.2-5.4) 04/25/18 02:45 [place] # 0.6 K/mm3 (0.0-0.8) 04/25/18 02:45 Eos # 0.1 K/mm3 (0.0-0.4) 04/25/18 02:45 Baso # 0.0 K/mm3 (0.0-0.1) 04/25/18 02:45 Seg Neutrophils % 61.6 % (40.0-70.0) 04/25/18 02:45 Seg Neutrophils # 5.3 K/mm3 (1.8-7.7) 04/25/18 02:45 Sodium 138 mmol/L (137-145) 04/25/18 02:45 Potassium 3.3 mmol/L (3.6-5.0) L 04/25/18 02:45 Chloride 106.4 mmol/L (98-107) 04/25/18 02:45 Carbon Dioxide 20 mmol/L (22-30) L 04/25/18 02:45 Anion Gap 15 mmol/L 04/25/18 02:45 BUN 5 mg/dL (7-17) L 04/25/18 02:45 Creatinine 0.4 mg/dL (0.7-1.2) L 04/25/18 02:45 Estimated GFR > 60 ml/min 04/25/18 02:45 BUN/Creatinine Ratio 13 % 04/25/18 02:45 Glucose 75 mg/dL (65-100) 04/25/18 02:45 Calcium 7.9 mg/dL (8.4-10.2) L 04/25/18 02:45 Total Bilirubin 0.40 mg/dL (0.1-1.2) 04/25/18 02:45 Direct Bilirubin < 0.2 mg/dL (0-0.2) 04/24/18 10:17 AST 11 units/L (5-40) 04/25/18 02:45 ALT 8 units/L (7-56) 04/25/18 02:45 Alkaline Phosphatase 64 units/L (35-129) 04/25/18 02:45 Total Protein 5.5 g/dL (6.3-8.2) L D 04/25/18 02:45 Albumin 3.3 g/dL (3.9-5) L 04/25/18 02:45 Albumin/Globulin Ratio 1.5 % 04/25/18 02:45 Lipase 28 units/L (13-60) 04/24/18 10:17 HCG, Qual Positive (Negative) 04/24/18 10:17 HCG, Quant 2272 mIU/mL (0-4) H 04/24/18 10:17 Urine Color Yellow (Yellow) 04/24/18 10:16 Urine Turbidity Clear (Clear) 04/24/18 10:16 Urine pH 5.0 (5.0-7.0) 04/24/18 10:16 Ur Specific [place] 1.010 (1.003-1.030) 04/24/18 10:16 Urine Protein <15 mg/dl mg/dL (Negative) 04/24/18 10:16 Urine Glucose (UA) Neg mg/dL (Negative) 04/24/18 10:16 Urine Ketones 20 mg/dL (Negative) 04/24/18 10:16 Urine Blood Neg (Negative) 04/24/18 10:16 Urine Nitrite Neg (Negative) 04/24/18 10:16 Urine Bilirubin Neg (Negative) 04/24/18 10:16 Urine Urobilinogen < 2.0 mg/dL (<2.0) 04/24/18 10:16 Ur Leukocyte Esterase Neg (Negative) 04/24/18 10:16 Urine WBC (Auto) 2.0 /HPF (0.0-6.0) 04/24/18 10:16 Urine RBC (Auto) < 1.0 /HPF (0.0-6.0) 04/24/18 10:16 U Epithel Cells (Auto) 4.0 /HPF (0-13.0) 04/24/18 10:16 Urine Mucus Few /HPF 04/24/18 10:16 Nutrition/Malnutrition Assess - Dietary Evaluation Nutrition/Malnutrition Findings: Nutrition Notes Start: 04/25/18 13:09 Freq: Status: Active Protocol: Document 04/25/18 13:09 DASHA (Rec: 04/25/18 13:41 [email or web address]) Co-Sign 04/25/18 13:09 OL Nutrition Notes 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 Pt stated she has struggled to keep food down for the past month due to suspected ulcer. Pt stated she has had significant weight loss during this time period. The pt has also recently learned she is . Pt. is a potential candidate for TPN. Disscussed potential TPN with GI doctor. GI doctor deferring pt. to hospitalist. Waiting for hospitalist to return call to discuss TPN initiation. Percent of energy/protein needs met: 0%/0% Burn Absent Trauma Absent GI Symptoms Nausea Vomiting Current % PO Poor (25-49%) #1 Nutrition Diagnosis Inadequate oral intake Etiology Altered GI function As Evidenced by Signs and Symptoms Intractible vomitting, siignificant depletion from usual body weight Is patient on ventilator? No Is Patient Ambulatory and/or Out of Bed Yes REE-([facility]-ambulatory/OOB) [ 1524.744 [id number]] Kcal/Kg value to use for calculation 40 Approximate Energy Requirements Using 1708 kcal/Kg Calculation Used for Recommendations Kcal/kg Additional Notes Pro: 51-64g/day (1.2-1.5 g/kg BW) Fluid: 1 ml/kcal Nutrition Intervention Change Diet Order: Advance diet when medically feasible Nutrition Support: TPN if doctor agrees Goal #1 Diet advancement or TPN initiation to best meet nutritonal needs Goal #2 Weight maintenance or gain Anticipated Discharge Needs: Unknown at this time Follow-Up By: 04/28/18 Additional Comments F/u: Diet advacement, need for TPN, wt. status
--- NOTE | 2018-04-25 19:50 | Consultation ---
History of Present Illness Consult date: 04/25/18 Requesting physician: FRANCESCA JOSEPH Reason for consult: other (r/o SAB) History of present illness: Called to see pt due to her having heavy bleeding this am times one episode at about 11am. Pt states just some mild spotting at this time. Pt is a 27-year-old female with history of gastric ulcer comes in for left upper quadrant pain nausea and vomiting x 2 days. Patient apparently threw up bright red blood-a very small amount. Patient had gastric ulcer couple of years ago which was repaired by open laparotomy in [place]. Patient recently moved to [place] from [place]. She takes Bentyl and Protonix regularly .No melanotic stools. No fever or chills. Pt declines any pain at this time but does state she take zanax for anxiety and currently all the event of the last 24hrs have her very anxious. Sonogram was repeated and gestational sac seen yesterday is still present. I have d/w that early still appears in place. No recent intake of nonsteroidals. 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 Family/Genetic History: other (see H&P) Social history: no significant social history, - Obstetrical History : 4 Para: 3 Hx # Term Pregnancies: 1 Number of Pregnancies: 2 Number of Living Children: 3 Medications and Allergies Allergies Allergy/AdvReac Type Severity Reaction Status Date / Time ketorolac [From Toradol] Allergy Hives Verified 04/24/18 09:47 ondansetron [From Zofran] Allergy Itching Verified 04/24/18 11:42 piperacillin [From Zosyn] Allergy Hives Verified 04/24/18 09:46 tazobactam [From Zosyn] Allergy Hives Verified 04/24/18 09:46 Home Medications Medication Instructions Recorded Confirmed Last Taken Type ALPRAZolam [Xanax] 1 mg PO DAILY PRN 04/24/18 04/24/18 04/23/18 History Acetaminophen/Codeine [Tylenol 1 tab PO Q6H PRN 04/24/18 04/24/18 04/24/18 History /Codeine # 3 tab] Albuterol Sulfate [Ventolin HFA] 2 puff IH Q4H PRN 04/24/18 04/24/18 04/23/18 History Dicyclomine [Bentyl] 20 mg PO QID 04/24/18 04/24/18 04/23/18 History Pantoprazole [Protonix] 40 mg PO QDAY 04/24/18 04/24/18 04/23/18 History Sucralfate [Carafate] 20 ml PO BIDAC 04/24/18 04/24/18 04/23/18 History Active Meds: Active Medications Acetaminophen (Tylenol) 650 mg PO Q4H PRN PRN Reason: Pain MILD(1-3)/Fever >100.5/HOFF Hydromorphone HCl (Dilaudid) 1 mg IV Q3H PRN PRN Reason: Pain , Severe (7-10) Last Admin: 04/25/18 19:20 Dose: 1 mg Documented by: Sodium Chloride (Nacl 0.9% 1000 Ml) 1,000 mls @ 50 mls/hr IV DIRECT [facility] Last Admin: 04/25/18 16:08 Dose: 50 mls/hr Documented by: Pantoprazole Sodium (Protonix) 40 mg IV BID [facility] Last Admin: 04/25/18 09:35 Dose: 40 mg Documented by: Sodium Chloride (Sodium Chloride Flush Syringe 10 Ml) 10 ml IV BID [facility] Last Admin: 04/25/18 12:55 Dose: 10 ml Documented by: Sodium Chloride (Sodium Chloride Flush Syringe 10 Ml) 10 ml IV PRN PRN PRN Reason: LINE FLUSH - Vital Signs Vital signs: Vital Signs Temp Pulse BP Pulse Ox 99.1 F 119 H 119/62 100 04/24/18 10:12 04/24/18 10:12 04/24/18 10:12 04/24/18 10:12 Temp Pulse Resp BP Pulse Ox 98.6 F 85 18 114/61 98 04/25/18 11:36 04/25/18 11:36 04/25/18 11:36 04/25/18 11:36 04/25/18 11:36 Results Result Diagrams: 04/25/18 12:15 04/25/18 02:45 Abnormal lab results 04/25/18 04/25/18 Range/Units 02:45 02:45 MCH 26 L (28-32) pg RDW 18.2 H (13.2-15.2) % Potassium 3.3 L (3.6-5.0) mmol/L Carbon Dioxide 20 L (22-30) mmol/L BUN 5 L (7-17) mg/dL Creatinine 0.4 L (0.7-1.2) mg/dL Calcium 7.9 L (8.4-10.2) mg/dL Total Protein 5.5 L D (6.3-8.2) g/dL Albumin 3.3 L (3.9-5) g/dL All other labs normal. Assessment and Plan - Patient Problems (1) Early stage of Current Visit: Yes Status: Acute Plan to address problem: -currently not sure of lmp so exact gestational age is not know. SAB precautions have been given and I have d/w that her stability out weigh the early gestation at this time. She was advised of risk to early gestation with studies being done and certain procedures. This discussion was also balanced with the fact that the has not been established as being normal at this time. Pt expressed understanding. Currently she is stable from OB standpoint. Will sign off at this time please re-consult as needed. Thank you for the consultation. (2) Hematemesis Current Visit: Yes Status: Acute Qualifiers: Nausea presence: with nausea Qualified Code(s): K92.0 - Hematemesis (3) Upper GI bleed Current Visit: Yes Status: Acute (4) Peptic ulcer disease Current Visit: Yes Status: Chronic
--- NOTE | 2018-04-25 22:55 | Ultrasound Report ---
FINAL REPORT PROCEDURE: US OB TRANSVAGINAL TECHNIQUE: Real-time transvaginal sonography of the uterus, placenta, amniotic fluid, adnexa, and fe tus was performed with image documentation. Measurements were obtained to determine age/size. M -mode Doppler was used to document heartbeat. CPT 65341 HISTORY: VAGINAL BLEED COMPARISON: No prior studies are available for comparison. FINDINGS: Small cystic fluid collection appears to be visualized centrally in the endometrial canal suggesting early intrauterine gestation. Double decidual sign appears to be visualized on the image provided 553 08 p.m.. pole heartbeat are not visualized. The sac measures approximately 7.7 millimeters cor responding to an age of 5 weeks 3 days. Uterus is otherwise unremarkable. Left ovary is unremarkable measuring 1.8 x 1.3 x 2.4 centimeter. In the right ovary there is a complex cystic structure visualiz ed measuring approximately 2.8 centimeter with lacy echoes present suggesting hemorrhagic corpus lute um cyst of . The right ovary is otherwise unremarkable. IMPRESSION: Early gestational sac appears to be visualized. By sac size the estimated age is 5 weeks 3 days. Feta l pole and heartbeat are not yet visualized. Consider follow-up exam in 7-10 days to evaluate for demetrio ing intrauterine . Hemorrhagic cyst suspected in the right ovary suggesting hemorrhagic corpus luteum cyst of .
[2018-04-26] MEDS: DILAUDID IV PRN ×5 (01:25→14:56)
[2018-04-26] MEDS: PROTONIX IV SCH ×2 (07:54→22:18)
[2018-04-26] MEDS ORDERED: DILAUDID IV ONE (08:15)
[2018-04-26] MEDS: SODIUM CHLORIDE FLUSH SYRINGE 10 ML IV SCH ×2 (11:09→22:29)
[2018-04-26] MEDS: NACL 0.9% 1000 ML 1,000 ML IV SCH (13:29)
--- NOTE | 2018-04-26 13:43 | Progress Note ---
Assessment and Plan - Patient Problems (1) Abdominal pain Current Visit: Yes Status: Acute Plan to address problem: Patient has no clear indication of why she may be having abdominal pain. Patient states she cannot walk with pain however she does walk. Patient also has been noted to get and ask for Dilaudid on the clock every 3 hours or before his show no visible evidence of pain. I did see GI as note which suggest surgical evaluation of adhesions for persistent pain. We'll obtain surgical consult. My initial concern however with be more anxiety as being a cause for her discomfort. Patient having a breakup with her significant other now. We'll treat with Ativan. And given Reglan for nausea and vomiting. Will wean away from Dilaudid. Patient also does not appear to be in that acute amount of pain. Transvaginal ultrasound unremarkable abdominal ultrasound unremarkable EGD shows gastritis. Treated with proton pump inhibitor. (2) Early stage of Current Visit: Yes Status: Acute Plan to address problem: Patient does not want to keep . wants terminated. (3) Upper GI bleed Current Visit: Yes Status: Acute Plan to address problem: Patient with upper GI bleed hemoglobin and hematocrit stable. Which she wears Reglan. Patient states at home she takes Phenergan suppositories and does not feel she needs one at this time. (4) Peptic ulcer disease Current Visit: Yes Status: Chronic Plan to address problem: Protonix monitor H&H. History Interval history: Patient 27-year-old female presented with gastric ulcers status post EGD showed erosive gastritis H&H has been stable. Patient was also noted to be . 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 Patient hospital course complicated and what she describes as persistent pain and vomiting. He should also complains of anxiety causing her chest tightness and panic feeling. Important to note patient told me to call her significant other partner in detail him what was going on with her hospital care. During the explanation and answering questions patient's significant other stated that he thought patient was there just to get medications. IV pain medications. Significant other stated that they were going through a breakup patient was very anxious. He also did take patient home and gave several instances where he felt patient was seeking medication at this time. Important to note as well this is marked first time evaluating patient and all care members of the care team seemed to feel the same way. Instances patient walking up and down the halls with stated she could not walk. I do feel however patient is anxious. Possible her pain is somatic complaints may be masked by anxiety Hospitalist Physical - Constitutional Vitals: Temp Pulse Resp BP Pulse Ox 98.9 F 72 18 122/77 100 04/26/18 11:46 04/26/18 11:46 04/26/18 11:46 04/26/18 11:46 04/26/18 11:46 General appearance: Present: no acute distress, well-nourished - EENT Eyes: Present: PERRL, EOM intact ENT: hearing intact, clear oral mucosa, dentition normal, oropharyngeal erythema, no poor dentition, no thrush, no ulcerations - Neck Neck: Present: supple, normal ROM. Absent: rigidity, enlarged thyroid, masses or JVD, cervical LAD - Respiratory Respiratory: bilateral: CTA - Cardiovascular Rhythm: regular Heart Sounds: Present: S1 & S2 - Extremities Extremities: no ischemia, pulses intact, pulses symmetrical, No edema, normal temperature, normal color, Full ROM Peripheral Pulses: within normal limits - Abdominal General gastrointestinal: soft, tender, non-distended, normal bowel sounds, other (rebound no guarding. No rebound or guarding) - Integumentary Integumentary: Present: clear, warm, dry - Psychiatric Psychiatric: appropriate mood/affect, cooperative - Neurologic Neurologic: CNII-XII intact, no focal deficits, moves all extremities, gait normal Results - Labs CBC & Chem 7: 04/25/18 12:15 04/25/18 02:45 Labs: Laboratory Last Values WBC 8.6 K/mm3 (4.5-11.0) 04/25/18 02:45 RBC 4.09 M/mm3 (3.65-5.03) 04/25/18 02:45 Hgb 11.6 gm/dl (10.1-14.3) 04/25/18 12:15 Hct 35.8 % (30.3-42.9) 04/25/18 12:15 MCV 82 fl (79-97) 04/25/18 02:45 MCH 26 pg (28-32) L 04/25/18 02:45 MCHC 32 % (30-34) 04/25/18 02:45 RDW 18.2 % (13.2-15.2) H 04/25/18 02:45 Plt Count 276 K/mm3 (140-440) 04/25/18 02:45 Lymph % (Auto) 30.1 % (13.4-35.0) 04/25/18 02:45 [place] % (Auto) 7.3 % (0.0-7.3) 04/25/18 02:45 Eos % (Auto) 0.7 % (0.0-4.3) 04/25/18 02:45 Baso % (Auto) 0.3 % (0.0-1.8) 04/25/18 02:45 Lymph # 2.6 K/mm3 (1.2-5.4) 04/25/18 02:45 [place] # 0.6 K/mm3 (0.0-0.8) 04/25/18 02:45 Eos # 0.1 K/mm3 (0.0-0.4) 04/25/18 02:45 Baso # 0.0 K/mm3 (0.0-0.1) 04/25/18 02:45 Seg Neutrophils % 61.6 % (40.0-70.0) 04/25/18 02:45 Seg Neutrophils # 5.3 K/mm3 (1.8-7.7) 04/25/18 02:45 Sodium 138 mmol/L (137-145) 04/25/18 02:45 Potassium 3.3 mmol/L (3.6-5.0) L 04/25/18 02:45 Chloride 106.4 mmol/L (98-107) 04/25/18 02:45 Carbon Dioxide 20 mmol/L (22-30) L 04/25/18 02:45 Anion Gap 15 mmol/L 04/25/18 02:45 BUN 5 mg/dL (7-17) L 04/25/18 02:45 Creatinine 0.4 mg/dL (0.7-1.2) L 04/25/18 02:45 Estimated GFR > 60 ml/min 04/25/18 02:45 BUN/Creatinine Ratio 13 % 04/25/18 02:45 Glucose 75 mg/dL (65-100) 04/25/18 02:45 Calcium 7.9 mg/dL (8.4-10.2) L 04/25/18 02:45 Total Bilirubin 0.40 mg/dL (0.1-1.2) 04/25/18 02:45 Direct Bilirubin < 0.2 mg/dL (0-0.2) 04/24/18 10:17 AST 11 units/L (5-40) 04/25/18 02:45 ALT 8 units/L (7-56) 04/25/18 02:45 Alkaline Phosphatase 64 units/L (35-129) 04/25/18 02:45 Total Protein 5.5 g/dL (6.3-8.2) L D 04/25/18 02:45 Albumin 3.3 g/dL (3.9-5) L 04/25/18 02:45 Albumin/Globulin Ratio 1.5 % 04/25/18 02:45 Lipase 28 units/L (13-60) 04/24/18 10:17 HCG, Qual Positive (Negative) 04/24/18 10:17 HCG, Quant 2272 mIU/mL (0-4) H 04/24/18 10:17 Urine Color Yellow (Yellow) 04/24/18 10:16 Urine Turbidity Clear (Clear) 04/24/18 10:16 Urine pH 5.0 (5.0-7.0) 04/24/18 10:16 Ur Specific [place] 1.010 (1.003-1.030) 04/24/18 10:16 Urine Protein <15 mg/dl mg/dL (Negative) 04/24/18 10:16 Urine Glucose (UA) Neg mg/dL (Negative) 04/24/18 10:16 Urine Ketones 20 mg/dL (Negative) 04/24/18 10:16 Urine Blood Neg (Negative) 04/24/18 10:16 Urine Nitrite Neg (Negative) 04/24/18 10:16 Urine Bilirubin Neg (Negative) 04/24/18 10:16 Urine Urobilinogen < 2.0 mg/dL (<2.0) 04/24/18 10:16 Ur Leukocyte Esterase Neg (Negative) 04/24/18 10:16 Urine WBC (Auto) 2.0 /HPF (0.0-6.0) 04/24/18 10:16 Urine RBC (Auto) < 1.0 /HPF (0.0-6.0) 04/24/18 10:16 U Epithel Cells (Auto) 4.0 /HPF (0-13.0) 04/24/18 10:16 Urine Mucus Few /HPF 04/24/18 10:16 - Imaging and Cardiology US - abdomen: report reviewed, image reviewed Nutrition/Malnutrition Assess - Dietary Evaluation Nutrition/Malnutrition Findings: Nutrition Notes Start: 04/25/18 13:09 Freq: Status: Active Protocol: Document 04/25/18 13:09 KH (Rec: 04/25/18 13:41 [email or web address]) Co-Sign 04/25/18 13:09 OL Nutrition Notes 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 Pt stated she has struggled to keep food down for the past month due to suspected ulcer. Pt stated she has had significant weight loss during this time period. The pt has also recently learned she is . Pt. is a potential candidate for TPN. Disscussed potential TPN with GI doctor. GI doctor deferring pt. to hospitalist. Waiting for hospitalist to return call to discuss TPN initiation. Percent of energy/protein needs met: 0%/0% Burn Absent Trauma Absent GI Symptoms Nausea Vomiting Current % PO Poor (25-49%) #1 Nutrition Diagnosis Inadequate oral intake Etiology Altered GI function As Evidenced by Signs and Symptoms Intractible vomitting, siignificant depletion from usual body weight Is patient on ventilator? No Is Patient Ambulatory and/or Out of Bed Yes REE-([place]. Jeor-ambulatory/OOB) [ 1524.744 NUTR.MSJOOB] Kcal/Kg value to use for calculation 40 Approximate Energy Requirements Using 1708 kcal/Kg Calculation Used for Recommendations Kcal/kg Additional Notes Pro: 51-64g/day (1.2-1.5 g/kg BW) Fluid: 1 ml/kcal Nutrition Intervention Change Diet Order: Advance diet when medically feasible Nutrition Support: TPN if doctor agrees Goal #1 Diet advancement or TPN initiation to best meet nutritonal needs Goal #2 Weight maintenance or gain Anticipated Discharge Needs: Unknown at this time Follow-Up By: 04/28/18 Additional Comments F/u: Diet advacement, need for TPN, wt. status
[2018-04-26 14:14] LABS: Hematocrit 35.5 % (30.3-42.9); Hemoglobin 11.7 gm/dl (10.1-14.3); Mean Corpuscular HGB Conc 33 % (30-34); Mean Corpuscular Volume 80 fl (79-97); Platelet Count 332 K/mm3 (140-440); Red Blood Count 4.44 M/mm3 (3.65-5.03); Red Cell Distribution Width 18.3 % (13.2-15.2)
[2018-04-26] MEDS: ATIVAN PO PRN ×3 (14:21→22:18)
[2018-04-26] MEDS: CARAFATE PO SCH ×2 (14:21→22:16)
[2018-04-26 14:24] LABS: BUN/Creatinine Ratio 10; Blood Urea Nitrogen 4 mg/dL (7-17); Calcium 8.6 mg/dL (8.4-10.2); Hemolysis Index 11
[2018-04-26] MEDS: REGLAN IV PRN (18:24)
[2018-04-26] MEDS: DILAUDID PO PRN ×2 (18:24→22:20)
--- NOTE | 2018-04-26 18:37 | Gastroenterology Progress Note ---
Assessment and Plan - Patient Problems (1) LUQ abdominal pain Current Visit: Yes Status: Acute Plan to address problem: - Possibly adhesions from prior perforation (gastric). - When miscarriage is complete, patient can consider CT scan and possible exp loratory surgery. - For now, will continue protonix and advance diet. - Pain/nausea control as per primary team/agree. Subjective Date of service: 04/26/18 Principal diagnosis: LUQ pain Interval history: The patient is tolerating clears and vitals are stable. No witness N/V. Has LUQ pain by report, but not witnessed in distress. Per nursing, asking for [id number] narcotics. Objective - Constitutional Vitals: Temp Pulse Resp BP Pulse Ox 98.4 F 84 19 97/46 98 04/26/18 17:34 04/26/18 17:34 04/26/18 17:34 04/26/18 17:34 04/26/18 17:34 General appearance: no acute distress - EENT Eyes: PERRL, EOM intact - Respiratory Respiratory effort: normal Respiratory: bilateral: CTA - Cardiovascular Rhythm: regular Heart Sounds: Present: S1 & S2 - Gastrointestinal General gastrointestinal: Present: soft, tender (Subjective guarding, not with distraction), non-distended - Labs CBC & Chem 7: 04/26/18 13:17 04/26/18 13:17 Labs: Laboratory Results - last 24 hr 04/26/18 04/26/18 13:17 13:17 WBC 6.7 RBC 4.44 Hgb 11.7 Hct 35.5 MCV 80 MCH 26 L MCHC 33 RDW 18.3 H Plt Count 332 Sodium 139 Potassium 3.3 L Chloride 101.8 Carbon Dioxide 23 Anion Gap 18 BUN 4 L Creatinine 0.4 L Estimated GFR > 60 BUN/Creatinine Ratio 10 Glucose 102 H Calcium 8.6
[2018-04-26] MEDS ORDERED: PROTONIX PO SCH (22:00)
[2018-04-26] MEDS ORDERED: BENADRYL PO PRN (23:51)
[2018-04-26] MEDS ORDERED: BENADRYL IV ONE (23:51)
[2018-04-27] MEDS: DILAUDID PO PRN ×2 (02:25→11:13)
[2018-04-27] MEDS: ATIVAN PO PRN ×6 (02:26→22:40)
[2018-04-27] MEDS ORDERED: ZOFRAN IV ONE (03:26)
--- NOTE | 2018-04-27 03:29 | Event Note ---
Date: 04/27/18 code met reported that the patient had small blood clot from her nose She was reported to have coffee-ground emesis She also passed out for a few seconds Her vitals are stable, blood sugar stable Brief syncopal episode secondary to vasovagal Repeat labs now Wants pain medication, discussed with patient pain medication and fetus Patient states she does not intend to keep the baby states she vomited up the pain medication that was given to her Gave her a one-time dose of 1 mg morphine IV, Zofran The high probability of a clinically significant, sudden or life threatening deterioration of the [CV, GI, respiratory] system(s) required my full and direct attention, intervention and personal management. The aggregate critical care time was [ 35] minutes. This time is in addition to time spent performing reported procedures but includes the following: x] Data Review and interpretation [x] Patient assessment and monitoring of vital signs [x] Documentation [x] Medication orders and management
[2018-04-27] MEDS: MORPHINE IV ONE ×2 (03:39→03:54)
[2018-04-27] MEDS: REGLAN IV PRN ×2 (03:41→11:13)
[2018-04-27] MEDS ORDERED: DILAUDID IV ONE (03:57)
[2018-04-27] MEDS: PROTONIX IV SCH (09:07)
[2018-04-27] MEDS: CARAFATE PO SCH ×3 (09:07→22:40)
[2018-04-27] MEDS: NACL 0.9% 1000 ML 1,000 ML IV SCH (11:12)
[2018-04-27] MEDS: SODIUM CHLORIDE FLUSH SYRINGE 10 ML IV SCH ×2 (11:14→22:40)
--- NOTE | 2018-04-27 12:04 | Progress Note ---
Assessment and Plan - Patient Problems (1) Abdominal pain Current Visit: Yes Status: Acute Plan to address problem: Change patient's pain control from Dilaudid to Percocet and we'll continue to wean accordingly. I did see GI as note which suggest surgical evaluation of adhesions for persistent pain. We'll obtain surgical consult. My initial kamran rn however with be more anxiety as being a cause for her discomfort. Patient did do better with Ativan. Patient having a breakup with her significant other now and spoke with him on the phone. And given Reglan for nausea and vomiting. Will wean away from Dilaudid. Patient also does not appear to be in that acute amount of pain. Transvaginal ultrasound unremarkable abdominal ultrasound unremarkable EGD shows gastritis. Treated with proton pump inhibitor. (2) Early stage of Current Visit: Yes Status: Acute Plan to address problem: Patient does not want to keep . wants terminated. (3) Upper GI bleed Current Visit: Yes Status: Acute Plan to address problem: Patient with upper GI bleed hemoglobin and hematocrit stable. Which she wears Reglan. Patient states at home she takes Phenergan suppositories and does not feel she needs one at this time. (4) Peptic ulcer disease Current Visit: Yes Status: Chronic Plan to address problem: Protonix monitor H&H. History Interval history: Patient Hospital course complicated last night by episode of blood clot from the nose. See nurse's note is well. Patient was also stated she felt weak and laid her head back into bed. Code med was called. Patient was hemodynamically stable. A shift now complains of pain again states she wants more IV pain medications and IV pain medications only. Patient tolerated the wean to by mouth Dilaudid. I have told patient we will change her to by mouth Percocet today. She is okay with change in medications. Patient also tolerated change in diet. She did pick through the food but did not have any untoward reactions. Patient is able to get up walk up and down the khanna without any difficulty. Important to know I spoke with patient's significant other after she asked me to give him a update on her status. He told me that he was concerned that she was here to get pain medications and that is all. She also confirms that she wants this terminated as soon as she can. Hospitalist Physical - Constitutional Vitals: Temp Pulse Resp BP Pulse Ox 100 F H 114 H 18 100/64 98 04/27/18 11:16 04/27/18 06:18 04/27/18 06:18 04/27/18 06:18 04/27/18 06:18 General appearance: Present: no acute distress, well-nourished - EENT Eyes: Present: PERRL, EOM intact ENT: hearing intact, clear oral mucosa, dentition normal - Neck Neck: Present: supple, normal ROM - Respiratory Respiratory: bilateral: CTA - Cardiovascular Rhythm: regular - Extremities Extremities: no ischemia, pulses intact, pulses symmetrical Peripheral Pulses: within normal limits - Abdominal General gastrointestinal: soft, tender, non-distended, normal bowel sounds - Psychiatric Psychiatric: appropriate mood/affect - Neurologic Neurologic: CNII-XII intact, moves all extremities Results - Labs CBC & Chem 7: 04/26/18 13:17 04/26/18 13:17 Labs: Laboratory Last Values WBC 6.7 K/mm3 (4.5-11.0) 04/26/18 13:17 RBC 4.44 M/mm3 (3.65-5.03) 04/26/18 13:17 Hgb 11.7 gm/dl (10.1-14.3) 04/26/18 13:17 Hct 35.5 % (30.3-42.9) 04/26/18 13:17 MCV 80 fl (79-97) 04/26/18 13:17 MCH 26 pg (28-32) L 04/26/18 13:17 MCHC 33 % (30-34) 04/26/18 13:17 RDW 18.3 % (13.2-15.2) H 04/26/18 13:17 Plt Count 332 K/mm3 (140-440) 04/26/18 13:17 Lymph % (Auto) 30.1 % (13.4-35.0) 04/25/18 02:45 [place] % (Auto) 7.3 % (0.0-7.3) 04/25/18 02:45 Eos % (Auto) 0.7 % (0.0-4.3) 04/25/18 02:45 Baso % (Auto) 0.3 % (0.0-1.8) 04/25/18 02:45 Lymph # 2.6 K/mm3 (1.2-5.4) 04/25/18 02:45 [place] # 0.6 K/mm3 (0.0-0.8) 04/25/18 02:45 Eos # 0.1 K/mm3 (0.0-0.4) 04/25/18 02:45 Baso # 0.0 K/mm3 (0.0-0.1) 04/25/18 02:45 Seg Neutrophils % 61.6 % (40.0-70.0) 04/25/18 02:45 Seg Neutrophils # 5.3 K/mm3 (1.8-7.7) 04/25/18 02:45 Sodium 139 mmol/L (137-145) 04/26/18 13:17 Potassium 3.3 mmol/L (3.6-5.0) L 04/26/18 13:17 Chloride 101.8 mmol/L (98-107) 04/26/18 13:17 Carbon Dioxide 23 mmol/L (22-30) 04/26/18 13:17 Anion Gap 18 mmol/L 04/26/18 13:17 BUN 4 mg/dL (7-17) L 04/26/18 13:17 Creatinine 0.4 mg/dL (0.7-1.2) L 04/26/18 13:17 Estimated GFR > 60 ml/min 04/26/18 13:17 BUN/Creatinine Ratio 10 % 04/26/18 13:17 Glucose 102 mg/dL (65-100) H 04/26/18 13:17 POC Glucose 93 (70-105) 04/27/18 03:16 Calcium 8.6 mg/dL (8.4-10.2) 04/26/18 13:17 Total Bilirubin 0.40 mg/dL (0.1-1.2) 04/25/18 02:45 Direct Bilirubin < 0.2 mg/dL (0-0.2) 04/24/18 10:17 AST 11 units/L (5-40) 04/25/18 02:45 ALT 8 units/L (7-56) 04/25/18 02:45 Alkaline Phosphatase 64 units/L (35-129) 04/25/18 02:45 Total Protein 5.5 g/dL (6.3-8.2) L D 04/25/18 02:45 Albumin 3.3 g/dL (3.9-5) L 04/25/18 02:45 Albumin/Globulin Ratio 1.5 % 04/25/18 02:45 Lipase 28 units/L (13-60) 04/24/18 10:17 HCG, Qual Positive (Negative) 04/24/18 10:17 HCG, Quant 5815 mIU/mL (0-4) H 04/27/18 03:20 Urine Color Yellow (Yellow) 04/24/18 10:16 Urine Turbidity Clear (Clear) 04/24/18 10:16 Urine pH 5.0 (5.0-7.0) 04/24/18 10:16 Ur Specific [place] 1.010 (1.003-1.030) 04/24/18 10:16 Urine Protein <15 mg/dl mg/dL (Negative) 04/24/18 10:16 Urine Glucose (UA) Neg mg/dL (Negative) 04/24/18 10:16 Urine Ketones 20 mg/dL (Negative) 04/24/18 10:16 Urine Blood Neg (Negative) 04/24/18 10:16 Urine Nitrite Neg (Negative) 04/24/18 10:16 Urine Bilirubin Neg (Negative) 04/24/18 10:16 Urine Urobilinogen < 2.0 mg/dL (<2.0) 04/24/18 10:16 Ur Leukocyte Esterase Neg (Negative) 04/24/18 10:16 Urine WBC (Auto) 2.0 /HPF (0.0-6.0) 04/24/18 10:16 Urine RBC (Auto) < 1.0 /HPF (0.0-6.0) 04/24/18 10:16 U Epithel Cells (Auto) 4.0 /HPF (0-13.0) 04/24/18 10:16 Urine Mucus Few /HPF 04/24/18 10:16 Nutrition/Malnutrition Assess - Dietary Evaluation Nutrition/Malnutrition Findings: Nutrition Notes Start: 04/25/18 13:09 Freq: Status: Active Protocol: Document 04/25/18 13:09 DASHA (Rec: 04/25/18 13:41 DASHA [email or web address]) Co-Sign 04/25/18 13:09 OL Nutrition Notes Need for Assessment generated from: automated weaver MST Initial or Follow up Assessment Other Pertinent Diagnosis persistent N/V/D, hx of gastric ulcers Current Diet NPO Labs/Tests K: 3.3 BUN: 5 Cr: 0.4 Pertinent Medications Reviewed Height 5 ft 5 in Weight 42.7 kg Usual Body Weight 73 kg [place] Body Weight (kg) 56.81 BMI 15.6 Weight change and time frame Updated weight obtained from bed scale Weight Status Underweight Subjective/Other Information Pt seen for MST and low BMI. Pt stated she has struggled to keep food down for the past month due to suspected ulcer. Pt stated she has had significant weight loss during this time period. The pt has also recently learned she is . Pt. is a potential candidate for TPN. Disscussed potential TPN with GI doctor. GI doctor deferring pt. to hospitalist. Waiting for hospitalist to return call to discuss TPN initiation. Percent of energy/protein needs met: 0%/0% Burn Absent Trauma Absent GI Symptoms Nausea Vomiting Current % PO Poor (25-49%) #1 Nutrition Diagnosis Inadequate oral intake Etiology Altered GI function As Evidenced by Signs and Symptoms Intractible vomitting, siignificant depletion from usual body weight Is patient on ventilator? No Is Patient Ambulatory and/or Out of Bed Yes REE-([facility]-ambulatory/OOB) [ 1524.744 NUTR.MSJOOB] Kcal/Kg value to use for calculation 40 Approximate Energy Requirements Using 1708 kcal/Kg Calculation Used for Recommendations Kcal/kg Additional Notes Pro: 51-64g/day (1.2-1.5 g/kg BW) Fluid: 1 ml/kcal Nutrition Intervention Change Diet Order: Advance diet when medically feasible Nutrition Support: TPN if doctor agrees Goal #1 Diet advancement or TPN initiation to best meet nutritonal needs Goal #2 Weight maintenance or gain Anticipated Discharge Needs: Unknown at this time Follow-Up By: 04/28/18 Additional Comments F/u: Diet advacement, need for TPN, wt. status
[2018-04-27] MEDS: PERCOCET 5/325 PO PRN ×2 (13:33→20:09)
--- NOTE | 2018-04-27 15:12 | Consultation ---
History of Present Illness Consult date: 04/27/18 Reason for consult: abdominal pain Chief complaint: abdominal pain - History of present illness History of present illness: 27 yo F with hx of perforated ulcer during EGD last year s/p exlap, repair of pe rforation presents to ER with c/o sudden onset LUQ abdominal pain, n/v. Emesis contained bright red blood and she states her bowel movements have been dark. The pain has been constant for the last 1 wk. It does not radiate. It is sharp. It feels similar to her pain when the ulcer perforated. She is requesting IV narcotics and states PO percocet does not help her pain. She has been on PPI and bentyl as outpatient. She underwent EGD this admission which was unremarkable. Surgery consult was suggested for persistent abdominal pain. The patient states she is unable to tolerate anything by mouth. She has been feeling febrile. She has been having bowel movements. She was diagnosed with in ER. She states she is having an . Past History Past Medical History: hepatitis (C?), other (PUD - 2017) Past Surgical History: cholecystectomy, Other (Gastric surgery for PUD) Social history: no significant social history, Family history: no significant family history Medications and Allergies Allergies Allergy/AdvReac Type Severity Reaction Status Date / Time ketorolac [From Toradol] Allergy Hives Verified 04/24/18 09:47 morphine Allergy Hives Verified 04/27/18 04:26 ondansetron [From Zofran] Allergy Itching Verified 04/24/18 11:42 piperacillin [From Zosyn] Allergy Hives Verified 04/24/18 09:46 tazobactam [From Zosyn] Allergy Hives Verified 04/24/18 09:46 Home Medications Medication Instructions Recorded Confirmed Last Taken Type ALPRAZolam [Xanax] 1 mg PO DAILY PRN 04/24/18 04/24/18 04/23/18 History Acetaminophen/Codeine [Tylenol 1 tab PO Q6H PRN 04/24/18 04/24/18 04/24/18 History /Codeine # 3 tab] Albuterol Sulfate [Ventolin HFA] 2 puff IH Q4H PRN 04/24/18 04/24/18 04/23/18 History Dicyclomine [Bentyl] 20 mg PO QID 04/24/18 04/24/18 04/23/18 History Pantoprazole [Protonix] 40 mg PO QDAY 04/24/18 04/24/18 04/23/18 History Sucralfate [Carafate] 20 ml PO BIDAC 04/24/18 04/24/18 04/23/18 History Active Meds: Active Medications Acetaminophen (Tylenol) 650 mg PO Q4H PRN PRN Reason: Pain MILD(1-3)/Fever >100.5/HOFF Last Admin: 04/27/18 00:30 Dose: 650 mg Documented by: Dicyclomine HCl (Bentyl) 20 mg PO QID [facility] Diphenhydramine HCl (Benadryl) 25 mg PO Q8H PRN PRN Reason: Itching Last Admin: 04/27/18 07:38 Dose: 25 mg Documented by: Hydromorphone HCl (Dilaudid) 1 mg PO Q4H PRN PRN Reason: Pain , Severe (7-10) Last Admin: 04/27/18 11:13 Dose: 1 mg Documented by: Sodium Chloride (Nacl 0.9% 1000 Ml) 1,000 mls @ 50 mls/hr IV DIRECT [facility] Last Admin: 04/27/18 11:12 Dose: 50 mls/hr Documented by: Lorazepam (Ativan) 1 mg PO Q4H PRN PRN Reason: Agitation Last Admin: 04/27/18 14:28 Dose: 1 mg Documented by: Metoclopramide HCl (Reglan) 10 mg IV Q6H PRN PRN Reason: Nausea And Vomiting Last Admin: 04/27/18 11:13 Dose: 10 mg Documented by: Oxycodone/Acetaminophen (Percocet 5/325) 2 tab PO Q6H PRN PRN Reason: Pain, Moderate (4-6) Last Admin: 04/27/18 13:33 Dose: 2 tab Documented by: Pantoprazole Sodium (Protonix) 40 mg PO BID [facility] Sodium Chloride (Sodium Chloride Flush Syringe 10 Ml) 10 ml IV BID [facility] Last Admin: 04/27/18 11:14 Dose: 10 ml Documented by: Sodium Chloride (Sodium Chloride Flush Syringe 10 Ml) 10 ml IV PRN PRN PRN Reason: LINE FLUSH Sucralfate (Carafate) 2 gm PO BID [facility] Last Admin: 04/27/18 10:05 Dose: Not Given Documented by: Review of Systems All systems: negative (10 pt ROS performed and negative except for that listed in HPI) Exam Vital Signs Temp Pulse BP Pulse Ox 99.1 F 119 H 119/62 100 04/24/18 10:12 04/24/18 10:12 04/24/18 10:12 04/24/18 10:12 Narrative exam: Gen: AAOx3. anxious and tearful ENT: no scleral icterus or conjunctival pallor CV: S1, S2+ Resp: even and unlabored Abd: soft, ND, + LUQ TTP. no r/r/g. well healed surgical scars Ext: no c/c/e Results - Labs 04/26/18 13:17 04/26/18 13:17 Abnormal lab results 04/27/18 Range/Units 03:20 HCG, Quant 5815 H (0-4) mIU/mL - Imaging US - abdomen: report reviewed, image reviewed US - pelvic: report reviewed, image reviewed Assessment and Plan 27 yo F with persistent LUQ abdominal pain with hx of PUD Plan: 1. IVF 2. prn pain control 3. I had a long discussion with the patient. I do not feel she has an urgent surgical problem based on her labs (WBC nml and Hb stable) and current physical exam. She is able to walk around her room and sit up straight from a supine position on her own without pain. She does not have peritoneal signs. The patient is frustrated because she feels that no one knows what is going on with her. I explained that we are limited in the testing we can do because she is . The patient states she does not intend to keep the baby and that she is planning on an as soon as she is discharged. She states CT scan was discussed with her by another physician. I explained that obtaining a Ct scan can cause potential harm to the unborn child and can lead to defects, premature among other things. I explained that even if a CT scan is obtained, it may not provide a diagnosis. We reviewed the amount of radiation exposure from plain Xray vs CT and the high dose related to CT. I recommended waiting to obtain CT after termination of . She is adamant about having the CT prior to dc. She does not want to have an Xray. She signed the Radiology waiver form knowing the risk to the fetus. Will proceed with Ct scan as per patient wishes. Unfortunately the patient is allergic to Oral and IV contrast. Prep will take 13 hrs per civil drafting technician. Because this is not urgent, will prep patient. 4. Prep ordered as per protocol 5. Ct scan A/P tomorrow D/W Dr. Alves Thank you, please call with questions.
[2018-04-27] MEDS: BENTYL PO SCH ×3 (15:24→22:40)
--- NOTE | 2018-04-27 17:21 | Gastroenterology Progress Note ---
Assessment and Plan - Patient Problems (1) LUQ abdominal pain Current Visit: Yes Status: Acute Plan to address problem: - Possibly adhesions from prior perforation (gastric). - Surgery note reviewed, and I agree; does not appear to have an acute surgical or GI emergency like obstruction or PUD based on PE/labs. - For now, will continue protonix and regular diet. - I reiterated the potential harm to the fetus from CT scans, surgery, some invasive testing. The patient also told me (similar to surgery) that she already has an appt at an clinic to terminate the ; she states her own health is more important, and is adamant she wants to pursue further workup here prior to discharge. Subjective Date of service: 04/27/18 Principal diagnosis: LUQ pain Interval history: The patient states her LUQ pain is still present and constant, without much relief from pain meds. Is able to ambulate and has not had witnessed emesis. Objective - Constitutional Vitals: Temp Pulse Resp BP Pulse Ox 100.1 F H 136 H 18 119/70 98 04/27/18 11:51 04/27/18 11:51 04/27/18 11:51 04/27/18 11:51 04/27/18 11:51 - Respiratory Respiratory effort: normal Respiratory: bilateral: CTA - Cardiovascular Rhythm: regular Heart Sounds: Present: S1 & S2 - Gastrointestinal General gastrointestinal: Present: soft, tender (subjective guard in LUQ (none when distracted)), non-distended - Labs CBC & Chem 7: 04/26/18 13:17 04/26/18 13:17 Labs: Laboratory Results - last 24 hr 04/27/18 04/27/18 03:16 03:20 POC Glucose 93 HCG, Quant 5815 H
[2018-04-27] MEDS ORDERED: BENTYL PO SCH (18:00)
[2018-04-27] MEDS: BENADRYL IV SCH (18:59)
[2018-04-27] MEDS: SOLU-Medrol IV SCH (18:59)
[2018-04-27] MEDS: PEPCID IV SCH (19:00)
[2018-04-27] MEDS ORDERED: DELTASONE PO SCH (19:00)
[2018-04-27] MEDS ORDERED: PEPCID PO SCH (19:00)
[2018-04-27] MEDS ORDERED: BENADRYL PO SCH (19:00)
[2018-04-27] MEDS: PROTONIX PO SCH (22:40)
[2018-04-28] MEDS: BENADRYL IV SCH ×2 (01:05→08:02)
[2018-04-28] MEDS: PEPCID IV SCH ×2 (01:05→08:03)
[2018-04-28] MEDS: SOLU-Medrol IV SCH ×2 (01:05→08:02)
[2018-04-28] MEDS: PERCOCET 5/325 PO PRN ×2 (03:08→10:12)
[2018-04-28 07:01] VITALS: BP 116/71
[2018-04-28] MEDS ORDERED: NACL 0.9% 50 ML ONE (09:02)
[2018-04-28] MEDS ORDERED: ADRENALINE P/F ONE (09:14)
[2018-04-28] MEDS ORDERED: SOLU-Medrol ONE (09:14)
[2018-04-28] MEDS ORDERED: BENADRYL ONE (09:15)
[2018-04-28] MEDS ORDERED: SOLU-Medrol IV ONE (09:21)
[2018-04-28] MEDS ORDERED: BENADRYL IV ONE (09:21)
--- NOTE | 2018-04-28 09:21 | Event Note ---
Date: 04/28/18 A CODE KARISSA was called from the CT scanner and I responded. The patient was not in cardiac arrest and was awake and alert but having some distress secondary to receiving contrast. Patient stated she has chest tightness and shortness of breath and itchiness. Patient's oropharynx was within normal limits lungs are clear to auscultation. O2 sat was within normal limits. Solu-Medrol Benadryl and 0.3 of subcutaneous epinephrine I been ordered given. Hospitalists also at bedside.
[2018-04-28] MEDS ORDERED: ADRENALINE P/F SUB-Q ONE (09:22)
[2018-04-28 09:35] LABS: Hematocrit 36.5 % (30.3-42.9); Hemoglobin 11.7 gm/dl (10.1-14.3); Mean Corpuscular HGB Conc 32 % (30-34); Mean Corpuscular Volume 80 fl (79-97); Platelet Count 310 K/mm3 (140-440); Red Blood Count 4.55 M/mm3 (3.65-5.03); Red Cell Distribution Width 18.1 % (13.2-15.2)
[2018-04-28 09:48] LABS: BUN/Creatinine Ratio 13; Blood Urea Nitrogen 5 mg/dL (7-17); Calcium 9.3 mg/dL (8.4-10.2); Hemolysis Index 34
[2018-04-28] MEDS ORDERED: ATIVAN IV PRN (09:49)
[2018-04-28 10:07] LABS: Basophils % (Manual) 0 % (0.0-1.8); Eosinophils % (Manual) 0 % (0.0-4.3); Monocytes % (Manual) 0 % (0.0-7.3); Total Cells Counted 100
[2018-04-28 10:08] LABS: Anisocytosis 1+; Ovalocytes Few; Platelet Estimate Consistent w Auto; Poikilocytosis 1+
[2018-04-28] MEDS: CARAFATE PO SCH (10:12)
[2018-04-28] MEDS: PROTONIX PO SCH (10:13)
[2018-04-28] MEDS: BENTYL PO SCH (10:13)
[2018-04-28] MEDS: SODIUM CHLORIDE FLUSH SYRINGE 10 ML IV SCH (10:13)
--- NOTE | 2018-04-28 11:37 | Cat Scan Report ---
FINAL REPORT EXAM: CT ABDOMEN PELVIS W CON HISTORY: LUQ abdominal pain, hx of perforated ulcer TECHNIQUE: CT abdomen and pelvis performed. Images extend from diaphragm to pubic symphysis. IV con trast was administered. Axial images and coronal and sagittal reformatted images were obtained. PRIORS: None. FINDINGS: The visualized aspects of the lung bases are clear. There is a 1.7 cm tiny collection of fluid in the cb hepatis region which could be free fluid or f ocally dilated CBD or choledochocele. The patient is status post cholecystectomy.. The visualized liver, spleen, pancreas, adrenal glands and kidneys demonstrate no significant abnorma lities. There is no evidence of intestinal obstruction. The appendix is not specifically identified. There is no free intraperitoneal air. There are no abnormal fluid collections seen. There is a 3 cm right adnexal cystic mass. This can be correlated with pelvic ultrasound. IMPRESSION: There is a 3 cm right adnexal cystic mass. This can be correlated with pelvic ultrasound. There is a small collection of fluid in the cb hepatis region which could be free fluid or focally dilated CBD or choledochocele. Patient is status post cholecystectomy.
--- NOTE | 2018-04-28 12:12 | Gastroenterology Progress Note ---
Subjective Date of service: 04/28/18 Principal diagnosis: LUQ pain Objective - Constitutional Vitals: Temp Pulse Resp BP Pulse Ox 97.7 F 119 H 18 116/71 97 04/28/18 05:47 04/28/18 05:47 04/28/18 05:47 04/28/18 05:47 04/28/18 05:47 - Labs CBC & Chem 7: 04/28/18 09:27 04/28/18 09:27 Labs: Laboratory Results - last 24 hr 04/28/18 04/28/18 09:27 09:27 WBC 11.5 H RBC 4.55 Hgb 11.7 Hct 36.5 MCV 80 MCH 26 L MCHC 32 RDW 18.1 H Plt Count 310 Add Manual Diff Complete Total Counted 100 Seg Neutrophils % Be[employer] Work[employer] Seg Neuts % (Manual) 96.0 H Band Neutrophils % 0 Lymphocytes % (Manual) 4.0 L Reactive Lymphs % (Man) 0 Monocytes % (Manual) 0 Eosinophils % (Manual) 0 Basophils % (Manual) 0 Metamyelocytes % 0 Myelocytes % 0 Promyelocytes % 0 Blast Cells % 0 Nucleated RBC % Not Reportable Seg Neutrophils # Man 11.0 H Band Neutrophils # 0.0 Lymphocytes # (Manual) 0.5 L Abs React Lymphs (Man) 0.0 Monocytes # (Manual) 0.0 Eosinophils # (Manual) 0.0 Basophils # (Manual) 0.0 Metamyelocytes # 0.0 Myelocytes # 0.0 Promyelocytes # 0.0 Blast Cells # 0.0 WBC Morphology Not Reportable Hypersegmented Neuts Not Reportable Hyposegmented Neuts Not Reportable Hypogranular Neuts Not Reportable Smudge Cells Not Reportable Toxic Granulation Not Reportable Toxic Vacuolation Not Reportable Dohle Bodies Not Reportable Pelger-Huet Anomaly Not Reportable Babs Rods Not Reportable Platelet Estimate Consistent w auto Clumped Platelets Not Reportable Plt Clumps, EDTA Not Reportable Large Platelets Not Reportable Giant Platelets Not Reportable Platelet Satelliting Not Reportable Plt Morphology Comment Not Reportable RBC Morphology Not Reportable Dimorphic RBCs Not Reportable Polychromasia Not Reportable Hypochromasia Not Reportable Poikilocytosis 1+ Anisocytosis 1+ Microcytosis Not Reportable Macrocytosis Not Reportable Spherocytes Not Reportable Pappenheimer Bodies Not Reportable Sickle Cells Not Reportable Target Cells Not Reportable Tear Drop Cells Not Reportable Ovalocytes Few Helmet Cells Not Reportable Meyers-Rembert Bodies Not Reportable [place] Rings Not Reportable [place] Cells Not Reportable Bite Cells Not Reportable Crenated Cell Not Reportable Elliptocytes Not Reportable Acanthocytes (Spur) Not Reportable Rouleaux Not Reportable Hemoglobin C Crystals Not Reportable Schistocytes Not Reportable Malaria parasites Not Reportable [place] Bodies Not Reportable Hem Pathologist Commnt No Sodium 137 Potassium 3.6 Chloride 100.0 Carbon Dioxide 22 Anion Gap 19 BUN 5 L Creatinine 0.4 L Estimated GFR > 60 BUN/Creatinine Ratio 13 Glucose 121 H Calcium 9.3
--- NOTE | 2018-04-28 12:19 | Event Note ---
Date: 04/28/18 Pt chart reviewed. Overnight patient very disruptive and demanding pain medications. She would not take oral prep and so it was changed to IV however she did take her oral percocet. Per nursing notes, the patient threatened to sign out AMA however then decided not to. She was prepped as per protocol for CT scan. She underwent CT scan and started to c/o SOB. Code MET called and per notes patient was awake and responsive. Appropriate medication was given per ER physician and hospitalist who were present. The patient was then sent back to the floor. I discussed with Pete BAJWA, patient's nurse. Apparently the patient was asking for more IV pain medication. She promptly left AMA and went to the ER. Spoke with Dr. Mckeon in ER. Pt asked for dilaudid immediately upon seeing physician. She left AMA from ER. CT scan reviewed - no acute surgical findings. Radiology report reviewed.
--- NOTE | 2018-04-28 12:57 | Event Note ---
Date: 04/28/18 Patient with LUQ abd pain. LFTs WNL. Abd CT scan today showed small collection of fluid in the cb hepatis region which could be free fluid or focally dilated CBD or choledochocele. Went to patient's room to discuss findings and recommend further workup/evaluation with MRCP as outpatient, however she had signed out AMA.
--- NOTE | 2018-05-07 14:44 | Discharge Summary ---
Providers - Providers Date of Admission: 04/24/18 13:42 Attending physician: FRANCESCA JOSEPH MD 04/24/18 13:41 Consult to Physician [CONS] Routine Comment: Consulting Provider: KAIDEN MANNING Physician Instructions: Reason For Exam: GI bleed 04/25/18 12:08 Consult to Physician [CONS] Routine Comment: Consulting Provider: NICA MCKEON Physician Instructions: Reason For Exam: possible miscariage 04/27/18 07:48 Consult to Physician [CONS] Routine Comment: Consulting Provider: YANELI BUCK Physician Instructions: Reason For Exam: pesistant bdominal pain Primary care physician: LAMONTE MONTENEGRO Hospitalization Reason for admission: Gastric enteritis Condition: Serious Hospital course: 27-year-old -Cypriot female with history of gastric ulcer comes in for left upper quadrant pain nausea and vomiting x 2 days. Patient apparently threw up bright red blood-a very small amount. Patient had gastric ulcer couple of years ago which was repaired by open laparotomy in [place]. Patient recently moved to [place] from [place]. She takes Bentyl and Protonix regularly .No melanotic stools. No fever or chills. Pain in the epigastric and left upper quadrant is about 10 on a scale of 1-10. No exacerbating or relieving factors. No recent intake of nonsteroidals. During the hospital stay the patient was very melodramatic, and got upset when her dilaudid was being weaned. GI saw the patient and suggest surgical evaluation of adhesions for persistent pain she unfortunately signed out when the surgeon came. The patinet was felt to be anxious and was started on Ativan. The patient began to report that she having a breakup with her significant other now and spoke with him on the phone. At night the day prior to him leaving AMA Hospital course complicated last night by episode of blood clot from the nose. See nurse's note as well. Patient was also stated she felt weak and laid her head back into bed. Code med was called. Patient was hemodynamically stable. On the day she signed out the patient went for CT scan, she had a code blue called, on arrival the patient was once again in tears which rapidly resolved once i called for ativan and dilaudid, she later said she was upset about all the things going on in her life and then subsquently left AMA. she never lost her pulse at anytime. GI bleed secondary to Erosive gastritis VAGINAL BLEED EARLY SPONTANEOUS possible IUP PERITONEAL IRRATION ?ADHESION hx of PUD IN 2017 in [place] w/ iatrogenic perforation during endoscopy requiring surgical repair Hypokalemia HX OF PUD Anxiety Disposition: DC-07 LEFT AGAINST MED ADVICE Time spent for discharge: 55 mins Core Measure Documentation - Palliative Care Palliative Care/ Comfort Measures: Not Applicable - Core Measures Any of the following diagnoses?: none Exam - Physical Exam Narrative exam: VITAL SIGNS: Reviewed. GENERAL: The patient appeared well nourished and normally developed. Vital signs as documented. HEAD: No signs of head trauma. EYES: Pupils are equal. Extraocular motions intact. EARS: Hearing grossly intact. MOUTH: Oropharynx is normal. NECK: No adenopathy, no JVD. CHEST: Chest with clear breath sounds bilaterally. No wheezes, rales, or rhonchi. CARDIAC: Regular rate and rhythm. S1 and S2, without murmurs, gallops, or rubs. VASCULAR: No Edema. Peripheral pulses normal and equal in all extremities. ABDOMEN: Soft, Tender generalized. No sign of distention. No rebound or guarding, and no masses palpated. Bowel Sounds normal. MUSCULOSKELETAL: Good range of motion of all major joints. Extremities without clubbing, cyanosis or edema. NEUROLOGIC EXAM: Alert and oriented x 3. No focal sensory or strength deficits . Speech normal. Follows commands. PSYCHIATRIC: Mood emotional SKIN: No rash or lesions. - Constitutional Vitals: Temp Pulse Resp BP Pulse Ox 97.7 F 119 H 18 116/71 97 04/28/18 05:47 04/28/18 05:47 04/28/18 05:47 04/28/18 05:47 04/28/18 05:47 Plan Follow up with: LAMONTE MONTENEGRO DO [Primary Care Provider] - 3-5 Days Forms: AMA Form
== END 2018-04-28 10:25 | disposition left against medical advice (07) | DRG 831 ==
LOC: ED 09:45 → 3A 13:42
PROVIDERS: ADMIT Internal Medicine; ATTEND Internal Medicine
PROC: 0DJ08ZZ Inspection of Upper Intestinal Tract, Via Natural or Artificial Opening Endoscopic (ICD-10-PCS; principal; 2018-04-24)
DX: O99.611 Diseases of the digestive system complicating pregnancy, first trimester (principal); K29.71 Gastritis, unspecified, with bleeding; K65.9 Peritonitis, unspecified; O26.611 Liver and biliary tract disorders in pregnancy, first trimester; F17.200 Nicotine dependence, unspecified, uncomplicated; E87.6 Hypokalemia; Z53.21 Procedure and treatment not carried out due to patient leaving prior to being seen by health care provider; K76.89 Other specified diseases of liver; O99.331 Smoking (tobacco) complicating pregnancy, first trimester; O26.891 Other specified pregnancy related conditions, first trimester; K83.8 Other specified diseases of biliary tract; F17.210 Nicotine dependence, cigarettes, uncomplicated; Z82.49 Family history of ischemic heart disease and other diseases of the circulatory system; Z88.6 Allergy status to analgesic agent; Z88.8 Allergy status to other drugs, medicaments and biological substances; Z79.01 Long term (current) use of anticoagulants; Z79.899 Other long term (current) drug therapy; Z90.49 Acquired absence of other specified parts of digestive tract; Z3A.01 Less than 8 weeks gestation of pregnancy
CPT/HCPCS: 36415; 74177; 76705; 76801; 76817; 80048; 80053; 80076; 81001; 82962; 83690; 84702; 84703; 85007; 85014; 85018; 85025; 85027; 93005; 93010; 96361; 96374; 96375; 96376; 99406; G0378; C9113; J0171; J1170; J1200; J2270; J2405; J2704; J2765; J2920; J2930; J7030; J7512; Q9967

== ENCOUNTER 2018-04-29 12:12 | Emergency (ER) | payer SELFPAY ==
--- NOTE | 2018-04-29 13:04 | Cat Scan Report ---
CT HEAD WITHOUT CONTRAST: HISTORY: Head injury. TECHNIQUE: Sequential 2.5mm CT images. COMPARISON: none. FINDINGS: Cerebral Parenchyma: Within normal limits. Cerebellum: Within normal limits. Brainstem: Within normal limits. Ventricles: Normal. Sella: Normal. Extra-axial spaces: Normal. Basal Cisterns: Normal. Intracranial Hemorrhage: None. Midline Shift: None. Calvarium: Normal. Sinuses: Normal. Mastoid Air Cells: Normal. Visualized Orbits: Normal. IMPRESSION: Cranial CT scan within normal limits.
--- NOTE | 2018-04-29 13:57 | Emergency Department Report ---
ED General Adult HPI - General Chief complaint: Abdominal Pain Stated complaint: VOMITING BLOOD Time Seen by Provider: 04/29/18 12:27 Source: patient Mode of arrival: Ambulatory Limitations: No Limitations - History of Present Illness Initial comments: Patient presents to the ED with complaint of abdominal pain. The patient was recently admitted to this hospital and left the inpatient services AGAINST MEDICAL ADVICE and on the same day while leaving the hospital the patient had a syncopal episode and was seen in the ED where she later left AGAINST MEDICAL ADVICE as well. Patient states that she fell and hit her head today and now has a headache and neck pain. Patient denies LOC. Patient also complains of abdominal pain as well. Please see the notes from yesterday for more detail. The complete history and physical were done with a cinder crusher operator in the room who was Nurse Vannesa Samaniego -: Sudden Location: head Severity scale (0 -10): 10 Quality: aching Consistency: constant Improves with: none Worsens with: none Associated Symptoms: denies other symptoms Treatments Prior to Arrival: none - Related Data Home Medications Medication Instructions Recorded Confirmed Last Taken ALPRAZolam [Xanax] 1 mg PO DAILY PRN 04/24/18 04/24/18 04/23/18 Acetaminophen/Codeine [Tylenol 1 tab PO Q6H PRN 04/24/18 04/24/18 04/24/18 /Codeine # 3 tab] Albuterol Sulfate [Ventolin HFA] 2 puff IH Q4H PRN 04/24/18 04/24/18 04/23/18 Dicyclomine [Bentyl] 20 mg PO QID 04/24/18 04/24/18 04/23/18 Pantoprazole [Protonix] 40 mg PO QDAY 04/24/18 04/24/18 04/23/18 Sucralfate [Carafate] 20 ml PO BIDAC 04/24/18 04/24/18 04/23/18 Allergies Allergy/AdvReac Type Severity Reaction Status Date / Time ketorolac [From Toradol] Allergy Hives Verified 04/24/18 09:47 morphine Allergy Hives Verified 04/27/18 04:26 ondansetron [From Zofran] Allergy Itching Verified 04/24/18 11:42 piperacillin [From Zosyn] Allergy Hives Verified 04/24/18 09:46 tazobactam [From Zosyn] Allergy Hives Verified 04/24/18 09:46 ED Review of Systems ROS: Stated complaint: VOMITING BLOOD Other details as noted in HPI Comment: All other systems reviewed and negative Constitutional: denies: chills, fever Eyes: denies: eye pain, eye discharge, vision change ENT: denies: ear pain, throat pain Respiratory: denies: cough, shortness of breath, wheezing Cardiovascular: denies: chest pain, palpitations Endocrine: no symptoms reported Gastrointestinal: denies: abdominal pain, nausea, diarrhea Genitourinary: denies: urgency, dysuria, discharge Musculoskeletal: denies: back pain, joint swelling, arthralgia Skin: denies: rash, lesions Neurological: denies: headache, weakness, paresthesias Psychiatric: denies: anxiety, depression Hematological/Lymphatic: denies: easy bleeding, easy bruising ED Past Medical Hx - Past Medical History Previous Medical History?: Yes Hx Hypertension: No Hx Heart Attack/AMI: No Hx Congestive Heart Failure: No Hx Diabetes: No Hx Liver Disease: No Hx Renal Disease: No Hx Sickle Cell Disease: No Hx Seizures: No Hx Asthma: Yes Hx COPD: No Additional medical history: ulcers - Surgical History Hx Pacemaker: No - Social History Smoking Status: Current Every Day Smoker Substance Use Type: None - Medications Home Medications: Home Medications Medication Instructions Recorded Confirmed Last Taken Type ALPRAZolam [Xanax] 1 mg PO DAILY PRN 04/24/18 04/24/18 04/23/18 History Acetaminophen/Codeine [Tylenol 1 tab PO Q6H PRN 04/24/18 04/24/18 04/24/18 History /Codeine # 3 tab] Albuterol Sulfate [Ventolin HFA] 2 puff IH Q4H PRN 04/24/18 04/24/18 04/23/18 History Dicyclomine [Bentyl] 20 mg PO QID 04/24/18 04/24/18 04/23/18 History Pantoprazole [Protonix] 40 mg PO QDAY 04/24/18 04/24/18 04/23/18 History Sucralfate [Carafate] 20 ml PO BIDAC 04/24/18 04/24/18 04/23/18 History ED Physical Exam - General Limitations: No Limitations General appearance: alert, in no apparent distress - Head Head exam: Present: atraumatic, normocephalic - Eye Eye exam: Present: normal appearance, PERRL, EOMI - ENT ENT exam: Present: mucous membranes moist - Neck Neck exam: Present: normal inspection, other (paracervical tenderness to palpation) - Respiratory Respiratory exam: Present: normal lung sounds bilaterally. Absent: respiratory distress, wheezes, rales, rhonchi - Cardiovascular Cardiovascular Exam: Present: regular rate, normal rhythm. Absent: systolic murmur, diastolic murmur, rubs, gallop - GI/Abdominal GI/Abdominal exam: Present: soft, normal bowel sounds, other (patient has old surgical scar to abdomen). Absent: distended, tenderness - Extremities Exam Extremities exam: Present: normal inspection - Back Exam Back exam: Present: normal inspection - Neurological Exam Neurological exam: Present: alert, oriented X3, CN II-XII intact. Absent: motor sensory deficit - Psychiatric Psychiatric exam: Present: normal affect, normal mood - Skin Skin exam: Present: warm, dry, intact, normal color. Absent: rash ED Course Vital Signs 04/29/18 12:31 Temperature 98.2 F Pulse Rate 106 H Respiratory 16 Rate Blood Pressure 112/75 O2 Sat by Pulse 100 Oximetry ED Medical Decision Making - Radiology Data Radiology results: report reviewed Critical care attestation.: If time is entered above; I have spent that time in minutes in the direct care of this critically ill patient, excluding procedure time. ED Disposition Clinical Impression: Head injury Disposition: DC-01 TO HOME OR SELFCARE Is pt being admited?: No Does the pt Need Aspirin: No Condition: Stable Instructions: Minor Head Injury (ED) Additional Instructions: return if worse Referrals: [facility] [Provider Group] - 3-5 Days [facility] [Provider Group] - 3-5 Days Time of Disposition: 14:11
--- NOTE | 2018-04-29 14:07 | XRay Report ---
CERVICAL SPINE, 3 views: History: Neck pain. Findings: The vertebral bodies, disk spaces, posterior elements and prevertebral soft tissues are intact. The dens is intact. Minimal degenerative disc disease is identified at C5-6. No acute fracture or malalignment is identified. Impression: Minimal degenerative disc disease at C5-6.
[2018-04-29 16:00] VITALS: BP 110/66
== END 2018-04-29 14:44 | disposition home or self-care (01) ==
LOC: ED 12:12
DX: S09.90XA Unspecified injury of head, initial encounter (principal); M54.2 Cervicalgia; J45.909 Unspecified asthma, uncomplicated; F17.200 Nicotine dependence, unspecified, uncomplicated; R55 Syncope and collapse; Z88.5 Allergy status to narcotic agent; Z88.1 Allergy status to other antibiotic agents; W18.39XA Other fall on same level, initial encounter; Y93.89 Activity, other specified; Y92.89 Other specified places as the place of occurrence of the external cause; Y99.8 Other external cause status
CPT/HCPCS: 70450; 72040; 99284